=== PATIENT | female | born 1950 | race Caucasian/White ===

== ENCOUNTER 2017-05-14 16:57 | Observation (INO) | payer MEDICARE, MEDICAID ==
--- NOTE | 2017-05-14 17:00 | EDM.PDOC ---
ED HPI GENERAL MEDICAL PROBLEM - General Stated Complaint: SURGERY Time Seen by Provider: 05/14/17 17:00 Source of Information: Reports: Patient - History of Present Illness INITIAL COMMENTS - FREE TEXT/NARRATIVE: HISTORY AND PHYSICAL: History of present illness: []Patient presents by EMS from [facility] surgery after dental procedure She had dental procedure at 1300 today propofol for anesthesia, she is not recovering well from anesthesia she becomes hypoxic on room air, lungs were clear prior to procedure apparently she now has a slight crackle at the base on the left History of Alzheimer's dementia and does not follow instructions well No distress except is in mid 90s on 4 L currently with a Ventimask Patient does not provide review of systems DuoNeb was provided at [facility] surgery Review of systems: As per history of present illness and below otherwise all systems reviewed and negative. Past medical history: As per history of present illness and as reviewed below otherwise noncontributory. Surgical history: As per history of present illness and as reviewed below otherwise noncontributory. Social history: No reported history of drug or alcohol abuse. Family history: As per history of present illness and as reviewed below otherwise noncontributory. Physical exam: HEENT: Atraumatic, normocephalic, pupils reactive, negative for conjunctival pallor or scleral icterus, mucous membranes moist, throat clear, neck supple, nontender, trachea midline. Lungs: Clear to auscultation, breath sounds equal bilaterally, chest nontender. Heart: S1S2, regular, negative for clicks, rubs, or JVD. Abdomen: Soft, nondistended, nontender. Negative for masses or hepatosplenomegaly. Negative for costovertebral tenderness. Pelvis: Stable nontender. Genitourinary: Deferred. Rectal: Deferred. Extremities: Atraumatic, negative for cords or calf pain. Neurovascular unremarkable. Neuro: Awake, alert, oriented. Cranial nerves II through XII unremarkable. Cerebellum unremarkable. Motor and sensory unremarkable throughout. Exam nonfocal. Diagnostics: []CBC, CMP, UA, troponin EKG Chest 1 view Therapeutics: []O2 Ventimask Impression: []Hypoxia Postop dental procedure with anesthesia Chronic history of baseline Definitive disposition and diagnosis as appropriate pending reevaluation and review of above. 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: Musculoskeletal History: Reports: Other (See Below) Other Musculoskeletal History: hand and leg surgery Neurological History: Reports: Other (See Below) Other Neuro History: Dementia Psychiatric History: Reports: Dementia Dermatologic History: Reports: Cellulitis - Past Surgical History Musculoskeletal Surgical History: Reports: None Social & Family History - Tobacco Use Smoking Status *Q: Never Smoker Used Tobacco, but Quit: No Second Hand Smoke Exposure: No - Caffeine Use Caffeine Use: Reports: None - Recreational Drug Use Recreational Drug Use: No ED ROS GENERAL - Review of Systems Review Of Systems: ROS reveals no pertinent complaints other than HPI. ED EXAM, GENERAL - Physical Exam Exam: See Below Course - Vital Signs Last Recorded V/S: Last Vital Signs Temp 36.7 C 05/14/17 17:07 Pulse 94 05/14/17 17:07 Resp 20 05/14/17 17:07 BP 116/67 05/14/17 17:07 Pulse Ox 96 05/14/17 17:07 - Orders/Labs/Meds Orders: Active Orders 24 hr Category Date Time Status EKG Documentation Completion [RC] STAT Care 05/14/17 17:00 Active Chest 1V Frontal [CR] Stat Exams 05/14/17 17:00 Taken UA W/MICROSCOPIC [URIN] Stat Lab 05/14/17 16:59 Uncollected Labs: Laboratory Tests 05/14/17 05/14/17 05/14/17 Range/Units 17:18 17:35 17:35 WBC 12.66 H (4.0-11.0) K/uL RBC 4.05 L (4.30-5.90) M/uL Hgb 12.8 (12.0-16.0) g/dL Hct 39.8 (36.0-46.0) % MCV 98.3 H (80.0-98.0) fL MCH 31.6 (27.0-32.0) pg MCHC 32.2 (31.0-37.0) g/dL RDW Std Deviation 47.5 (28.0-62.0) fl RDW Coeff of Humera 13 (11.0-15.0) % Plt Count 279 (150-400) K/uL MPV 10.40 (7.40-12.00) fL Neut % (Auto) 89.3 H (48.0-80.0) % Lymph % (Auto) 9.2 L (16.0-40.0) % [place] % (Auto) 1.0 (0.0-15.0) % Eos % (Auto) 0.3 (0.0-7.0) % Baso % (Auto) 0.2 (0.0-1.5) % Neut # (Auto) 11.3 H (1.4-5.7) K/uL Lymph # (Auto) 1.2 (0.6-2.4) K/uL [place] # (Auto) 0.1 (0.0-0.8) K/uL Eos # (Auto) 0.0 (0.0-0.7) K/uL Baso # (Auto) 0.0 (0.0-0.1) K/uL Nucleated RBC % 0.0 /100WBC Nucleated RBCs # 0 K/uL Sodium 140 (136-146) mmol/L Potassium 4.4 (3.5-5.1) mmol/L Chloride 105 (98-110) mmol/L Carbon Dioxide 26 (21-31) mmol/L BUN 23 (6.0-23.0) mg/dL Creatinine 0.7 (0.6-1.5) mg/dL Est Cr Clr Drug Dosing 79.75 mL/min Estimated GFR (MDRD) > 60.0 ml/min Glucose 139 H (60-110) mg/dL Calcium 9.1 (8.8-10.8) mg/dL Total Bilirubin 0.3 (0.1-1.5) mg/dL AST 20 (5-40) IU/L ALT 19 (8-54) IU/L Alkaline Phosphatase 67 (40-150) Troponin I < 0.10 (0.0-0.29) NG/ML Total Protein 7.3 (6.0-8.0) g/dL Albumin 4.0 (3.4-4.8) g/dL Globulin 3.3 (2.0-3.5) g/dL Albumin/Globulin Ratio 1.2 L (1.3-2.8) Meds: Medications Discontinued Medications Generic Name Dose Route Start Last Admin Trade Name Freq PRN Reason Stop Dose Admin Methylprednisolone Sodium Succinate 125 mg 05/14/17 17:05 05/14/17 18:02 Solu-Medrol IVPUSH 05/14/17 17:06 125 mg ONETIME ONE Administration Departure - Departure Time of Disposition: 18:37 Disposition: Refer to Observation Condition: Fair Clinical Impression: Hypoxia - Discharge Information - My Orders Last 24 Hours: My Active Orders 05/14/17 16:59 UA W/MICROSCOPIC [URIN] Stat 05/14/17 17:00 EKG Documentation Completion [RC] STAT Chest 1V Frontal [CR] Stat - Assessment/Plan Last 24 Hours: My Active Orders 05/14/17 16:59 UA W/MICROSCOPIC [URIN] Stat 05/14/17 17:00 EKG Documentation Completion [RC] STAT Chest 1V Frontal [CR] Stat
[2017-05-14] MEDS ORDERED: methylPREDNISolone Sodium Succinate 125 MG/2 ML SDV IVPUSH ONE (17:05)
[2017-05-14 17:52] LABS: CHLORIDE,CL 105 mmol/L (98-110); SODIUM,NA 140 mmol/L (136-146)
--- NOTE | 2017-05-14 20:40 | PCM.HP ---
H&P History of Present Illness - General Admit Problem/Dx: Admission Diagnosis/Problem Admission Diagnosis/Problem Hypoxia - History of Present Illness Initial Comments - Free Text/Narative: 66 yo female with pmh of Alzheimer dementia who is a resident of [facility]. She had a [address] Alcantara today with the use of propofol. Following the procedure she had difficulty keep her O2 sats up. She was transferred to the ED. She is nonverbal but appears in no acute distress. She is satting 86-88% on room air. ED physician recommended observation overnight. 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: Musculoskeletal History: Reports: Other (See Below) Other Musculoskeletal History: hand and leg surgery Neurological History: Reports: Other (See Below) Other Neuro History: Dementia Psychiatric History: Reports: Dementia Dermatologic History: Reports: Cellulitis - Past Surgical History Musculoskeletal Surgical History: Reports: None Social & Family History - Family History Family Medical History: Noncontributory - Tobacco Use Smoking Status *Q: Never Smoker Used Tobacco, but Quit: No Second Hand Smoke Exposure: No - Caffeine Use Caffeine Use: Reports: None - Recreational Drug Use Recreational Drug Use: No H&P Review of Systems - Review of Systems: Review Of Systems: Unable To Obtain Exam - Exam Exam: See Below - Vital Signs Vital Signs: Last Vital Signs Temp 36.6 C 05/14/17 19:46 Pulse 101 H 05/14/17 19:46 Resp 14 05/14/17 19:46 BP 151/106 H 05/14/17 19:46 Pulse Ox 87 L 05/14/17 19:46 Weight: 87 kg - Exam General: No: Mild Distress Lungs: Clear to Auscultation, Normal Respiratory Effort Cardiovascular: Regular Rate, Regular Rhythm Extremities: Other (mild pedal edema) Skin: Warm, Dry, Intact - Patient Data Result Diagrams: 05/14/17 17:35 05/14/17 17:35 *Q Meaningful Use (ADM) - VTE *Q VTE Criteria *Q: - Stroke *Q Stroke Criteria *Q: - AMI *Q AMI Criteria *Q: Problem List Initiated/Reviewed/Updated: Yes Assessment/Plan Comment:: 66 yo female observed overnight due to slow to resolve hypoxia following anesthesea.
[2017-05-15 05:51] VITALS: BP 110/62
--- NOTE | 2017-05-15 09:35 | CR ---
EXAM DATE: 05/14/17 PATIENT'S AGE: 66 Patient: JOSE LUIS BANDA Facility: [place], [place] Site . Site : [id number] Study: XRay Chest [id number]/25/2017 5:59:08 PM Ordering Physician: Santiago Evangelista Final Report: INDICATION: Recent mouth surgery. Decreased oxygen saturations, lung crackles. Shortness of breath. TECHNIQUE: Chest radiograph 1 view COMPARISON: None FINDINGS: Lung volumes are diminished with linear atelectasis at the right lung base. The cardiac silhouette is mildly enlarged, likely accentuated due to portable AP technique and low lung volumes. No focal pneumonia. Proximal right humerus surgical hardware, partially visualized. Lateral 3rd right rib fracture deformity, age indeterminate. IMPRESSION: 1. Low lung volumes with cardiomegaly and right basilar atelectasis. No focal infiltrate. Dictated by Bonilla Adrian MD @ 05/14/2017 6:25:38 PM Dictated by: Bonilla Adrian MD @ 05/14/2017 18:25:44 (Electronic Signature) Report Signed by Proxy. [facility]
--- NOTE | 2017-05-15 11:31 | PCM.DCSUM1 ---
Discharge Summary - Hospital Course Brief History: 66 yo female with pmh of Alzheimer dementia who is a resident of [facility]. She had a [address] Alcantara today with the use of propofol. Following the procedure she had difficulty keep her O2 sats up. She was transferred to the ED. She is nonverbal but appears in no acute distress. She is satting 86-88% on room air. ED physician recommended observation overnight. - Discharge Data Discharge Date: 05/15/17 Discharge Disposition: DC/Tfer to SNF 03 Condition: Good - Discharge Diagnosis/Problem(s) (1) Hypoxia SNOMED Code(s): 571624616, 233629303 ICD Code: R09.02 - HYPOXEMIA Status: Resolved (2) Alzheimer's type dementia SNOMED Code(s): 09701823 ICD Code: G30.9 - ALZHEIMER'S DISEASE, UNSPECIFIED Status: Acute Qualifiers: Alzheimer's disease onset: unspecified onset Dementia behavioral disturbance: without behavioral disturbance Qualified Code(s): G30.9 - Alzheimer's disease, unspecified - Patient Instructions Diet: Usual Diet as Tolerated Activity: As Tolerated Notify Provider of: Fever, Increased Pain, Swelling and Redness, Drainage, Nausea and/or Vomiting - Discharge Plan Home Medications: Home Meds Acetaminophen [Tylenol Arthritis] 650 mg PO QID 05/14/17 [History] Acetaminophen [Tylenol Extra Strength] 500 mg PO Q4H PRN 05/15/17 [History] Citalopram Hydrobromide [Celexa] 40 mg PO DAILY 05/15/17 [History] Diazepam [Valium] 5 mg PO Q8H PRN 05/15/17 [History] Ibuprofen [Advil] 200 mg PO Q8H PRN 05/15/17 [History] Magnesium Hydroxide [Milk of Magnesia] 30 ml PO DAILY PRN 05/15/17 [History] Multivitamin [Multi-Vitamin Daily] 1 tab PO DAILY 05/15/17 [History] Nut.Sup,Spec.Frm,L-Fr,Iron/Fos [Twocal HN] 90 ml PO DAILY 05/15/17 [History] QUEtiapine Fumarate [Seroquel] 50 mg PO BID 05/15/17 [History] Patient Handouts: Hypoxemia Referrals: Ruperto Mart MD [Primary Care Provider] - 05/20/17 (On his next [place] rounds. ) - Discharge Summary/Plan Comment DC Time >30 min.: No Discharge Summary/Plan Comment: Discharge diagnoses Hypoxia post anesthesia Dementia Bambi was monitored overnight with supplemental oxygen as needed. This morning she is alert and in no acute distress. Oxygen saturations 93-94% on RA. We will discharge back to [place] this morning, with no changes to home medications. To follow up with Dr. Mart next week. - General Info Date of Service: 05/15/17 Admission Dx/Problem (Free Text: Admission Diagnosis/Problem Admission Diagnosis/Problem Hypoxia Subjective Update: Non-verbal, but alert. Does not appear in distress Functional Status: Reports: Pain Controlled, Tolerating Diet - Patient Data Vitals - Most Recent: Last Vital Signs Temp 97.7 F 05/15/17 04:00 Pulse 83 05/15/17 04:00 Resp 16 05/15/17 04:00 BP 110/62 05/15/17 04:00 Pulse Ox 91 L 05/15/17 04:00 Weight - Most Recent: 87 kg I&O - Last 24 hours: Intake & Output 05/14/17 05/15/17 05/15/17 22:59 06:59 14:59 Intake Total 50 150 Output Total 850 Balance 50 -700 Med Orders - Current: Current Medications Discontinued Medications Methylprednisolone Sodium Succinate (Solu-Medrol) 125 mg IVPUSH ONETIME ONE Stop: 05/14/17 17:06 Last Admin: 05/14/17 18:02 Dose: 125 mg - Exam General: Reports: Alert, Cooperative, No Acute Distress Lungs: Reports: Clear to Auscultation, Normal Respiratory Effort Cardiovascular: Reports: Regular Rate, Regular Rhythm Extremities: Normal Inspection, Normal Range of Motion, Non-Tender, No Pedal Edema, Normal Capillary Refill Skin: Reports: Warm, Dry Psy/Mental Status: Reports: Alert, Normal Affect, Normal Mood *Q Meaningful Use (DIS) - VTE *Q VTE Criteria *Q: - Stroke *Q Stroke Criteria *Q: - AMI *Q AMI Criteria *Q:
== END 2017-05-15 10:40 ==
LOC: MW.ED 16:57 → MW.MS 18:38
PROVIDERS: ADMIT Internal Medicine; ATTEND Internal Medicine
DX: R09.02 Hypoxemia (principal); M19.90 Unspecified osteoarthritis, unspecified site; F03.90 Unspecified dementia, unspecified severity, without behavioral disturbance, psychotic disturbance, mood disturbance, and anxiety; G30.9 Alzheimer's disease, unspecified; Z98.890 Other specified postprocedural states; Z79.891 Long term (current) use of opiate analgesic; Z79.899 Other long term (current) drug therapy; Z79.1 Long term (current) use of non-steroidal anti-inflammatories (NSAID)
CPT/HCPCS: 36415; 71010; 80053; 84484; 85025; 93005; 96374; 99285; G0378; J2930

== ENCOUNTER 2019-02-13 10:52 | Inpatient (IN) | payer MEDICARE, MEDICAID ==
--- NOTE | 2019-02-13 10:38 | EDM.PDOC ---
ED HPI GENERAL MEDICAL PROBLEM - General Stated Complaint: AMB Time Seen by Provider: 02/13/19 10:36 Source of Information: Reports: Patient, Family, Skilled Nursing Records, Old Records History Limitations: Reports: Altered Mental Status - History of Present Illness INITIAL COMMENTS - FREE TEXT/NARRATIVE: HISTORY AND PHYSICAL: History of present illness: Patient is a 68-year-old female who is brought to the emergency room by EMS with a stroke code being established prior to arrival due to vomiting and left- sided weakness and facial drooping. [facility] staff and family members state that she was last known well yesterday evening. This morning they had noted that she had vomiting, thought she had facial drooping affecting the lef and left sided weakness. Patient has a history of alzhiemers dementia. She is normally non-verbal and Review of systems: As per history of present illness and below otherwise all systems reviewed and negative. Past medical history: As per history of present illness and as reviewed below otherwise noncontributory. Surgical history: As per history of present illness and as reviewed below otherwise noncontributory. Social history: See social history for further information Family history: As per history of present illness and as reviewed below otherwise noncontributory. Physical exam: General: Well-developed and well-nourished 68-year-old female. Alert and oriented. Nontoxic appearing and in no acute distress. HEENT: Atraumatic, normocephalic, pupils equal and reactive bilaterally, negative for conjunctival pallor or scleral icterus, mucous membranes moist, TMs normal bilaterally, throat clear, neck supple, nontender, trachea midline. No drooling or trismus noted. No meningeal signs. No hot potato voice noted. Lungs: Clear to auscultation, breath sounds equal bilaterally, chest nontender. Heart: S1S2, regular rate and rhythm without overt murmur Abdomen: Soft, nondistended, nontender. Negative for masses or hepatosplenomegaly. Negative for costovertebral tenderness. Pelvis: Stable nontender. Genitourinary: Deferred. Rectal: Deferred. Skin: Intact, warm, dry. No lesions or rashes noted. Extremities: Atraumatic, moves all extremities per self without difficulty or deficits, negative for cords or calf pain. Neurovascular unremarkable. Neuro: Awake, alert, appropriate per self. Moves all extremties. Neuro appears baseline. Notes: Dr. Talley was directly involved in this case. Patient is a code level III. Patient's baseline is nonverbal and she does not follow commands. Difficult to assess and NIH scale. Patient moves all extremities and is able to grasp strong with hands bilaterally. She does not follow commands as far as assessing drift. No facial droop or drooling noted. Patient does wear protective boots bilaterally (prevent ulcers). Patient was log rolled, the back was assessed - mild erythema noted to the coccyx area but no skin break down noted. Patient was incontinent of urine. 1050: Dr Bradford, radiologist, called with head CT findings: No acute findings are noted at this time. Chest x-ray shows no acute findings. Troponin is 0.068. Patient is vitally stable. IV fluids are running. There is no acute findings on EKG. Patient's lactate and WBC are also elevated. Nursing staff did attempt to get a straight catheter urine, although she may have voided just prior to assess her brief was saturated with urine. Unable to get enough sample to send to lab. We will wait for urine collection, to assess if the sepsis is from UA. Reviewed with Dr Talley. IV antibiotics ordered. Dr. Rodriguez was consulted on this case. He is agreeable to admitting this patient for further evaluation and management. Family at the bedside is aware. We'll continue to monitor. Diagnostics: CBC, CMP, UA, Troponin, EKG, CXR, Head CT, INR/PTT, Machine Maintenance Therapeutics: IV fluids, Zofran, Rocephin, Levaquin, Zosyn Impression: Sepsis Plan: Inpatient ICU admission Definitive disposition and diagnosis as appropriate pending reevaluation and review of above. - Related Data Allergies Allergy/AdvReac Type Severity Reaction Status Date / Time No Known Allergies Allergy Verified 02/13/19 11:18 Home Meds: Home Meds Acetaminophen [Tylenol Arthritis] 650 mg PO QID 05/14/17 [History] Acetaminophen [Tylenol Extra Strength] 500 mg PO Q4H PRN 05/15/17 [History] Citalopram Hydrobromide [Celexa] 40 mg PO DAILY 05/15/17 [History] Diazepam [Valium] 5 mg PO Q8H PRN 05/15/17 [History] Ibuprofen [Advil] 200 mg PO Q8H PRN 05/15/17 [History] Magnesium Hydroxide [Milk of Magnesia] 30 ml PO DAILY PRN 05/15/17 [History] Multivitamin [Multi-Vitamin Daily] 1 tab PO DAILY 05/15/17 [History] Nut.Sup,Spec.Frm,L-Fr,Iron/Fos [Twocal HN] 90 ml PO DAILY 05/15/17 [History] QUEtiapine Fumarate [Seroquel] 50 mg PO BID 05/15/17 [History] Past Medical History HEENT History: Reports: Impaired 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 ED EXAM, NEURO - Physical Exam Exam: See Below (See dictation) Course - Vital Signs Last Recorded V/S: Last Vital Signs Temp 98.6 F 02/13/19 10:30 Pulse 94 02/13/19 10:30 Resp 18 02/13/19 10:30 BP 95/56 L 02/13/19 10:30 Pulse Ox 93 L 02/13/19 10:30 - Orders/Labs/Meds Orders: Active Orders 24 hr Category Date Time Status Patient Status [ADT] Stat ADT 02/13/19 12:20 Active Assess Neurological Status [RC] ASDIRECTED Care 02/13/19 10:32 Active Cardiac Monitoring [RC] . DIRECTED Care 02/13/19 10:32 Active EKG Documentation Completion [RC] STAT Care 02/13/19 10:31 Active Initiate Acute Stroke Protocol [RC] STAT Care 02/13/19 10:32 Active NIH Stroke Scale [RC] ASDIRECTED Care 02/13/19 10:32 Active Oxygen Therapy [RC] ASDIRECTED Care 02/13/19 10:32 Active CULTURE BLOOD [BC] Stat Lab 02/13/19 11:25 Received CULTURE BLOOD [BC] Stat Lab 02/13/19 11:40 Received UA RFX GATITO AND CULT IF INDIC [URIN] Stat Lab 02/13/19 Ordered Levofloxacin/Dextrose 5%-Water [Levaquin in D5W 750 MG/ Med 02/13/19 12:20 Active 150 ML] 750 mg Premix Bag 1 bag IV ONETIME Sodium Chloride 0.9% [Normal Saline] 1,000 ml Med 02/13/19 11:41 Active IV STAT Sodium Chloride 0.9% [Normal Saline] 1,000 ml Med 02/13/19 12:35 Active IV STAT Sodium Chloride 0.9% [Saline Flush] Med 02/13/19 10:31 Active 10 ml FLUSH ASDIRECTED PRN Sodium Chloride 0.9% [Saline Flush] Med 02/13/19 10:31 Active 2.5 ml FLUSH ASDIRECTED PRN Blood Culture x2 Reflex Set [OM.PC] Stat Oth 02/13/19 11:12 Ordered Saline Lock Insert [OM.PC] Stat Oth 02/13/19 10:31 Ordered Medication Orders Sodium Chloride (Normal Saline) 1,000 mls @ 500 mls/hr IV STAT ONE Stop: 02/13/19 13:40 Last Admin: 02/13/19 12:25 Dose: 500 mls/hr Levofloxacin/Dextrose 750 mg/ (Premix) 150 mls @ 100 mls/hr IV ONETIME ONE Stop: 02/13/19 13:49 Sodium Chloride (Normal Saline) 1,000 mls @ 999 mls/hr IV STAT ONE Stop: 02/13/19 13:35 Sodium Chloride (Saline Flush) 10 ml FLUSH ASDIRECTED PRN PRN Reason: Keep Vein Open Last Admin: 02/13/19 11:06 Dose: 10 ml Sodium Chloride (Saline Flush) 2.5 ml FLUSH ASDIRECTED PRN PRN Reason: Keep Vein Open Last Admin: 02/13/19 11:06 Dose: 2.5 ml Labs: Laboratory Tests 02/13/19 02/13/19 02/13/19 Range/Units 10:59 10:59 10:59 WBC 28.46 H (4.0-11.0) K/uL RBC 4.69 (4.30-5.90) M/uL Hgb 14.8 (12.0-16.0) g/dL Hct 46.5 H (36.0-46.0) % MCV 99.1 H (80.0-98.0) fL MCH 31.6 (27.0-32.0) pg MCHC 31.8 (31.0-37.0) g/dL RDW Std Deviation 51.1 (28.0-62.0) fl RDW Coeff of Humera 14 (11.0-15.0) % Plt Count 220 (150-400) K/uL MPV 13.40 H (7.40-12.00) fL Add Manual Diff YES Neutrophils % (Manual) 78 (48.0-80.0) % Band Neutrophils % 9 % Lymphocytes % (Manual) 6 L (16.0-40.0) % Monocytes % (Manual) 6 (0.0-15.0) % Metamyelocytes % 1 % Nucleated RBC % 0.0 /100WBC Absolute Seg Neuts 22.2 H (1.4-5.7) Band Neutrophils # 2.6 Lymphocytes # (Manual) 1.7 (0.6-2.4) Monocytes # (Manual) 1.7 H (0.0-0.8) Absolute Metamyelocyte 0.3 Nucleated RBCs # 0 K/uL Vacuolated Monocytes FEW INR 2.63 Lactate (0.20-2.00) mmol/L Sodium 152 H (136-145) mmol/L Potassium 3.5 (3.5-5.1) mmol/L Chloride 114 H (98-107) mmol/L Carbon Dioxide 26.5 (21.0-32.0) mmol/L BUN 29 H (7.0-18.0) mg/dL Creatinine 1.2 H (0.6-1.0) mg/dL Est Cr Clr Drug Dosing 42.00 mL/min Estimated GFR (MDRD) 44.7 ml/min Glucose 258 H (74-106) mg/dL Calcium 9.0 (8.5-10.1) mg/dL Total Bilirubin 0.7 (0.2-1.0) mg/dL AST 28 (15-37) IU/L ALT 41 (14-63) IU/L Alkaline Phosphatase 96 (46-116) U/L Troponin I 0.068 H* (0.000-0.056) ng/mL Total Protein 6.7 (6.4-8.2) g/dL Albumin 2.4 L (3.4-5.0) g/dL Globulin 4.3 H (2.6-4.0) g/dL Albumin/Globulin Ratio 0.6 L (0.9-1.6) 02/13/19 Range/Units 11:25 WBC (4.0-11.0) K/uL RBC (4.30-5.90) M/uL Hgb (12.0-16.0) g/dL Hct (36.0-46.0) % MCV (80.0-98.0) fL MCH (27.0-32.0) pg MCHC (31.0-37.0) g/dL RDW Std Deviation (28.0-62.0) fl RDW Coeff of Humera (11.0-15.0) % Plt Count (150-400) K/uL MPV (7.40-12.00) fL Add Manual Diff Neutrophils % (Manual) (48.0-80.0) % Band Neutrophils % % Lymphocytes % (Manual) (16.0-40.0) % Monocytes % (Manual) (0.0-15.0) % Metamyelocytes % % Nucleated RBC % /100WBC Absolute Seg Neuts (1.4-5.7) Band Neutrophils # Lymphocytes # (Manual) (0.6-2.4) Monocytes # (Manual) (0.0-0.8) Absolute Metamyelocyte Nucleated RBCs # K/uL Vacuolated Monocytes INR Lactate 2.5 H (0.20-2.00) mmol/L Sodium (136-145) mmol/L Potassium (3.5-5.1) mmol/L Chloride (98-107) mmol/L Carbon Dioxide (21.0-32.0) mmol/L BUN (7.0-18.0) mg/dL Creatinine (0.6-1.0) mg/dL Est Cr Clr Drug Dosing mL/min Estimated GFR (MDRD) ml/min Glucose (74-106) mg/dL Calcium (8.5-10.1) mg/dL Total Bilirubin (0.2-1.0) mg/dL AST (15-37) IU/L ALT (14-63) IU/L Alkaline Phosphatase (46-116) U/L Troponin I (0.000-0.056) ng/mL Total Protein (6.4-8.2) g/dL Albumin (3.4-5.0) g/dL Globulin (2.6-4.0) g/dL Albumin/Globulin Ratio (0.9-1.6) Meds: Medications Generic Name Dose Route Start Last Admin Trade Name Ubaldoq PRN Reason Stop Dose Admin Sodium Chloride 1,000 mls @ 500 mls/hr 02/13/19 11:41 02/13/19 12:25 Normal Saline IV 02/13/19 13:40 500 mls/hr STAT ONE Administration Levofloxacin/Dextrose 750 mg/ 150 mls @ 100 mls/hr 02/13/19 12:20 Premix IV 02/13/19 13:49 ONETIME ONE Sodium Chloride 1,000 mls @ 999 mls/hr 02/13/19 12:35 Normal Saline IV 02/13/19 13:35 STAT ONE Sodium Chloride 10 ml 02/13/19 10:31 02/13/19 11:06 Saline Flush FLUSH 10 ml ASDIRECTED PRN Administration Keep Vein Open Sodium Chloride 2.5 ml 02/13/19 10:31 02/13/19 11:06 Saline Flush FLUSH 2.5 ml ASDIRECTED PRN Administration Keep Vein Open Discontinued Medications Generic Name Dose Route Start Last Admin Trade Name Brigette PRN Reason Stop Dose Admin Ceftriaxone Sodium/Dextrose 1 50 mls @ 100 mls/hr 02/13/19 11:41 02/13/19 12: 25 gm/ Premix IV 02/13/19 12:10 100 mls/hr ONETIME ONE Administration Piperacillin Sod/Tazobactam 50 mls @ 100 mls/hr 02/13/19 12:23 Sod 3.375 gm/ Sodium Chloride IV 02/13/19 12:52 ONETIME ONE Ondansetron HCl 4 mg 02/13/19 10:32 02/13/19 11:06 Zofran IVPUSH 02/13/19 10:33 4 mg ONETIME ONE Administration Departure - Departure Time of Disposition: 12:56 Disposition: Admitted As Inpatient 66 Clinical Impression: Sepsis Qualifiers: Sepsis type: sepsis due to unspecified organism Qualified Code(s): A41.9 - Sepsis, unspecified organism - Discharge Information - My Orders Last 24 Hours: My Active Orders 02/13/19 UA RFX GATITO AND CULT IF INDIC [URIN] Stat 02/13/19 10:31 EKG Documentation Completion [RC] STAT Sodium Chloride 0.9% [Saline Flush] 10 ml FLUSH ASDIRECTED PRN Sodium Chloride 0.9% [Saline Flush] 2.5 ml FLUSH ASDIRECTED PRN Saline Lock Insert [OM.PC] Stat 02/13/19 10:32 Assess Neurological Status [RC] ASDIRECTED Cardiac Monitoring [RC] . DIRECTED Initiate Acute Stroke Protocol [RC] STAT NIH Stroke Scale [RC] ASDIRECTED Oxygen Therapy [RC] ASDIRECTED 02/13/19 11:12 Blood Culture x2 Reflex Set [OM.PC] Stat 02/13/19 11:25 CULTURE BLOOD [BC] Stat 02/13/19 11:40 CULTURE BLOOD [BC] Stat 02/13/19 11:41 Sodium Chloride 0.9% [Normal Saline] 1,000 ml IV STAT 02/13/19 12:20 Patient Status [ADT] Stat Levofloxacin/Dextrose 5%-Water [Levaquin in D5W 750 MG/150 ML] 750 mg Premix Bag 1 bag IV ONETIME 02/13/19 12:35 Sodium Chloride 0.9% [Normal Saline] 1,000 ml IV STAT - Assessment/Plan Last 24 Hours: My Active Orders 02/13/19 UA RFX GATITO AND CULT IF INDIC [URIN] Stat 02/13/19 10:31 EKG Documentation Completion [RC] STAT Sodium Chloride 0.9% [Saline Flush] 10 ml FLUSH ASDIRECTED PRN Sodium Chloride 0.9% [Saline Flush] 2.5 ml FLUSH ASDIRECTED PRN Saline Lock Insert [OM.PC] Stat 02/13/19 10:32 Assess Neurological Status [RC] ASDIRECTED Cardiac Monitoring [RC] . DIRECTED Initiate Acute Stroke Protocol [RC] STAT NIH Stroke Scale [RC] ASDIRECTED Oxygen Therapy [RC] ASDIRECTED 02/13/19 11:12 Blood Culture x2 Reflex Set [OM.PC] Stat 02/13/19 11:25 CULTURE BLOOD [BC] Stat 02/13/19 11:40 CULTURE BLOOD [BC] Stat 02/13/19 11:41 Sodium Chloride 0.9% [Normal Saline] 1,000 ml IV STAT 02/13/19 12:20 Patient Status [ADT] Stat Levofloxacin/Dextrose 5%-Water [Levaquin in D5W 750 MG/150 ML] 750 mg Premix Bag 1 bag IV ONETIME 02/13/19 12:35 Sodium Chloride 0.9% [Normal Saline] 1,000 ml IV STAT
[~2019-02-13 10:52] MED LIST: Ondansetron 4 MG/2 ML SDV IVPUSH ONE; Sodium Chloride 0.9% 10 ML Syringe FLUSH PRN; Sodium Chloride 0.9% 2.5 ML Syringe FLUSH PRN
--- NOTE | 2019-02-13 10:52 | CT ---
EXAMINATION: Non contrast CT head. Coronal and sagittal reformats. HISTORY: Strokelike symptoms FINDINGS: No evidence of intra or extra axial hemorrhage, mass, midline shift, hydrocephalus or edema. Moderate generalized atrophy with periventricular and subcortical white matter hypodensities. No hypoattenuation changes in the major vascular territories to suggest acute infarct. No abnormal intracranial calcifications are detected. No evidence of substantial vascular calcifications. Mild mucosal thickening within the maxillary sinuses. Mastoid air cells and middle ears are clear. Pituitary fossa appears unremarkable. Orbits and globes are symmetric. Calvarium is intact. No evidence of skull fracture. IMPRESSION: 1. No acute intracranial findings. 2. Moderate generalized atrophy and mild small vessel ischemic changes.
[2019-02-13] MEDS ORDERED: cefTRIAXone 1 GM in Premix Bag 1 BAG IV ONE (11:41)
[2019-02-13] MEDS ORDERED: Sodium Chloride 0.9% 1,000 ML IV ONE ×2 (11:41→12:35)
--- NOTE | 2019-02-13 11:41 | CR ---
EXAMINATION: Portable chest radiograph. HISTORY: Stroke like symptoms. FINDINGS: The trachea is midline. Low lung volumes. The cardiomediastinal silhouette is within normal limits. No pulmonary infiltrates, effusions or pneumothorax. Osseous structures appear osteopenic. Gaseous distended loops of large and small bowel are noted. IMPRESSION: No acute cardiopulmonary process.
[2019-02-13] MEDS ORDERED: Levofloxacin/Dextrose 5%-Water 750 MG in Premix Bag 1 BAG IV ONE (12:20)
[2019-02-13] MEDS ORDERED: Piperacillin/Tazobactam 3.375 GM in Sodium Chloride 0.9% 50 ML IV ONE (12:23)
[2019-02-13] MEDS ORDERED: Ondansetron 4 MG/2 ML SDV IVPUSH PRN (13:44)
[2019-02-13] MEDS ORDERED: Pantoprazole 40 MG Vial IV SCH (13:45)
[2019-02-13] MEDS ORDERED: Heparin Sodium 5,000 Units/ML Vial SUBCUT SCH (13:45)
[2019-02-13] MEDS ORDERED: Diazepam 5 MG Tab PO PRN (13:52)
--- NOTE | 2019-02-13 13:52 | PCM.HP ---
H&P History of Present Illness - General Date of Service: 02/13/19 Admit Problem/Dx: Admission Diagnosis/Problem Admission Diagnosis/Problem Sepsis - History of Present Illness Initial Comments - Free Text/Narative: 68 yo female with pmh of dementia who presents from [facility] with increasing lethargy, hypoxia and facial droop. IN the ED she was noted to have a WBC of 28 ,460. UA was nitrate positive. CT head was negative for acute pathology. - Related Data Allergies/Adverse Reactions: Allergies Allergy/AdvReac Type Severity Reaction Status Date / Time No Known Allergies Allergy Verified 02/13/19 11:18 Home Medications: Home Meds Citalopram Hydrobromide [Celexa] 40 mg PO DAILY 05/15/17 [History] Ibuprofen [Advil] 200 mg PO Q8H PRN 05/15/17 [History] Magnesium Hydroxide [Milk of Magnesia] 30 ml PO DAILY PRN 05/15/17 [History] Nut.Sup,Spec.Frm,L-Fr,Iron/Fos [Twocal HN] 3 oz PO QID 05/15/17 [History] QUEtiapine Fumarate [Seroquel] 25 mg PO BEDTIME 05/15/17 [History] Acetaminophen 500 mg PO Q4H PRN 02/15/19 [History] Acetaminophen [Tylenol Arthritis Pain] 650 mg PO QID 02/15/19 [History] Acetaminophen with Codeine [Acetaminop-Codeine 120-12 mg/5] 12.5 - 25 ml PO Q6H PRN 02/15/19 [History] Benzocaine [Orajel] 1 applic MUCMEM QID PRN 02/15/19 [History] Bisacodyl [Dulcolax] 10 mg RECTAL DAILY PRN 02/15/19 [History] Polyethylene Glycol 3350 [MiraLAX] 17 gm PO DAILY PRN 02/15/19 [History] guaiFENesin [Tussin] 10 ml PO Q4H PRN 02/15/19 [History] hydrOXYzine HCl [Atarax] 25 mg PO TID 02/15/19 [History] Menthol/Zinc Oxide [Gold Herbert Medicated Body Powdr] 1 applic TOP . 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: Musculoskeletal History: Reports: Other (See Below) Other Musculoskeletal History: hand and leg surgery Neurological History: Reports: Other (See Below) Other Neuro History: Dementia Psychiatric History: Reports: Dementia Endocrine/Metabolic History: Reports: None Hematologic History: Reports: None Immunologic History: Reports: None Oncologic (Cancer) History: Reports: None Dermatologic History: Reports: Cellulitis - Infectious Disease History Infectious Disease History: Reports: None - Past Surgical History Musculoskeletal Surgical History: Reports: None Social & Family History - Family History Family Medical History: Noncontributory - Tobacco Use Smoking Status *Q: Former Smoker Used Tobacco, but Quit: Yes Month/Year Tobacco Last Used: 4 years - Caffeine Use Caffeine Use: Reports: None - Recreational Drug Use Recreational Drug Use: No H&P Review of Systems - Review of Systems: Review Of Systems: Unable To Obtain Exam - Exam Exam: See Below - Vital Signs Vital Signs: Last Vital Signs Temp 37.0 C 02/13/19 10:30 Pulse 112 H 02/13/19 12:33 Resp 18 02/13/19 12:33 BP 95/67 02/13/19 12:33 Pulse Ox 93 L 02/13/19 12:33 Weight: 62.505 kg - Exam General: No: Mild Distress HEENT: Posterior Pharynx Clear Neck: Supple Lungs: Clear to Auscultation, Normal Respiratory Effort Cardiovascular: Regular Rate, Regular Rhythm GI/Abdominal Exam: Normal Bowel Sounds, Soft, Non-Tender Extremities: Non-Tender, No Pedal Edema Skin: Warm, Dry, Intact - Patient Data Lab Results Last 24 hrs: Laboratory Results - last 24 hr 02/13/19 02/13/19 02/13/19 Range/Units 10:59 10:59 10:59 WBC 28.46 H (4.0-11.0) K/uL RBC 4.69 (4.30-5.90) M/uL Hgb 14.8 (12.0-16.0) g/dL Hct 46.5 H (36.0-46.0) % MCV 99.1 H (80.0-98.0) fL MCH 31.6 (27.0-32.0) pg MCHC 31.8 (31.0-37.0) g/dL RDW Std Deviation 51.1 (28.0-62.0) fl RDW Coeff of Humera 14 (11.0-15.0) % Plt Count 220 (150-400) K/uL MPV 13.40 H (7.40-12.00) fL Add Manual Diff YES Neutrophils % (Manual) 78 (48.0-80.0) % Band Neutrophils % 9 % Lymphocytes % (Manual) 6 L (16.0-40.0) % Monocytes % (Manual) 6 (0.0-15.0) % Metamyelocytes % 1 % Nucleated RBC % 0.0 /100WBC Absolute Seg Neuts 22.2 H (1.4-5.7) Band Neutrophils # 2.6 Lymphocytes # (Manual) 1.7 (0.6-2.4) Monocytes # (Manual) 1.7 H (0.0-0.8) Absolute Metamyelocyte 0.3 Nucleated RBCs # 0 K/uL Vacuolated Monocytes FEW INR 2.63 Lactate (0.20-2.00) mmol/L Sodium 152 H (136-145) mmol/L Potassium 3.5 (3.5-5.1) mmol/L Chloride 114 H (98-107) mmol/L Carbon Dioxide 26.5 (21.0-32.0) mmol/L BUN 29 H (7.0-18.0) mg/dL Creatinine 1.2 H (0.6-1.0) mg/dL Est Cr Clr Drug Dosing 42.00 mL/min Estimated GFR (MDRD) 44.7 ml/min Glucose 258 H (74-106) mg/dL Calcium 9.0 (8.5-10.1) mg/dL Total Bilirubin 0.7 (0.2-1.0) mg/dL AST 28 (15-37) IU/L ALT 41 (14-63) IU/L Alkaline Phosphatase 96 (46-116) U/L Troponin I 0.068 H* (0.000-0.056) ng/mL Total Protein 6.7 (6.4-8.2) g/dL Albumin 2.4 L (3.4-5.0) g/dL Globulin 4.3 H (2.6-4.0) g/dL Albumin/Globulin Ratio 0.6 L (0.9-1.6) Urine Color Urine Appearance Urine pH (5.0-8.0) Ur Specific [place] (1.001-1.035) Urine Protein (NEGATIVE) mg/dL Urine Glucose (UA) (NEGATIVE) mg/dL Urine Ketones (NEGATIVE) mg/dL Urine Occult Blood (NEGATIVE) Urine Nitrite (NEGATIVE) Urine Bilirubin (NEGATIVE) Urine Ictotest Urine Urobilinogen (<2.0) EU/dL Ur Leukocyte Esterase (NEGATIVE) Urine RBC (0-2/HPF) Urine WBC (0-5/HPF) Ur Epithelial Cells (NONE-FEW) Urine Bacteria (NEGATIVE) Hyaline Casts (0-2/LPF) Urine Mucus (NONE-MOD) Urinalysis Comment 02/13/19 02/13/19 Range/Units 11:25 12:53 WBC (4.0-11.0) K/uL RBC (4.30-5.90) M/uL Hgb (12.0-16.0) g/dL Hct (36.0-46.0) % MCV (80.0-98.0) fL MCH (27.0-32.0) pg MCHC (31.0-37.0) g/dL RDW Std Deviation (28.0-62.0) fl RDW Coeff of Humera (11.0-15.0) % Plt Count (150-400) K/uL MPV (7.40-12.00) fL Add Manual Diff Neutrophils % (Manual) (48.0-80.0) % Band Neutrophils % % Lymphocytes % (Manual) (16.0-40.0) % Monocytes % (Manual) (0.0-15.0) % Metamyelocytes % % Nucleated RBC % /100WBC Absolute Seg Neuts (1.4-5.7) Band Neutrophils # Lymphocytes # (Manual) (0.6-2.4) Monocytes # (Manual) (0.0-0.8) Absolute Metamyelocyte Nucleated RBCs # K/uL Vacuolated Monocytes INR Lactate 2.5 H (0.20-2.00) mmol/L Sodium (136-145) mmol/L Potassium (3.5-5.1) mmol/L Chloride (98-107) mmol/L Carbon Dioxide (21.0-32.0) mmol/L BUN (7.0-18.0) mg/dL Creatinine (0.6-1.0) mg/dL Est Cr Clr Drug Dosing mL/min Estimated GFR (MDRD) ml/min Glucose (74-106) mg/dL Calcium (8.5-10.1) mg/dL Total Bilirubin (0.2-1.0) mg/dL AST (15-37) IU/L ALT (14-63) IU/L Alkaline Phosphatase (46-116) U/L Troponin I (0.000-0.056) ng/mL Total Protein (6.4-8.2) g/dL Albumin (3.4-5.0) g/dL Globulin (2.6-4.0) g/dL Albumin/Globulin Ratio (0.9-1.6) Urine Color YELLOW Urine Appearance CLOUDY Urine pH 5.0 (5.0-8.0) Ur Specific [place] >= 1.030 (1.001-1.035) Urine Protein 30 H (NEGATIVE) mg/dL Urine Glucose (UA) NEGATIVE (NEGATIVE) mg/dL Urine Ketones TRACE H (NEGATIVE) mg/dL Urine Occult Blood SMALL H (NEGATIVE) Urine Nitrite POSITIVE H (NEGATIVE) Urine Bilirubin SMALL H (NEGATIVE) Urine Ictotest POSITIVE Urine Urobilinogen 1.0 (<2.0) EU/dL Ur Leukocyte Esterase TRACE H (NEGATIVE) Urine RBC 2-5 (0-2/HPF) Urine WBC 10-15 (0-5/HPF) Ur Epithelial Cells MODERATE (NONE-FEW) Urine Bacteria 4+ H (NEGATIVE) Hyaline Casts 2-4 (0-2/LPF) Urine Mucus MODERATE (NONE-MOD) Urinalysis Comment Result Diagrams: 02/16/19 06:04 02/16/19 12:55 Problem List Initiated/Reviewed/Updated: Yes Orders Last 24hrs: Active Orders 24 hr Category Date Time Status Patient Status [ADT] Stat ADT 02/13/19 12:20 Active Antiembolic Devices [RC] PER UNIT ROUTINE Care 02/13/19 13:45 Ordered Assess Neurological Status [RC] ASDIRECTED Care 02/13/19 10:32 Active Cardiac Monitoring [RC] . DIRECTED Care 02/13/19 10:32 Active EKG Documentation Completion [RC] STAT Care 02/13/19 10:31 Active Initiate Acute Stroke Protocol [RC] STAT Care 02/13/19 10:32 Active NIH Stroke Scale [RC] ASDIRECTED Care 02/13/19 10:32 Active Oxygen Therapy [RC] ASDIRECTED Care 02/13/19 10:32 Active Oxygen Therapy [RC] PRN Care 02/13/19 13:44 Ordered Up ad Rina [RC] ASDIRECTED Care 02/13/19 13:44 Ordered VTE/DVT Education [RC] PER UNIT ROUTINE Care 02/13/19 13:44 Ordered Vital Signs [RC] Q4H Care 02/13/19 13:44 Ordered Regular Diet [DIET] Diet 02/13/19 Breakfast Ordered Abdomen Pelvis wo Cont [CT] Routine Exams 02/13/19 13:46 Ordered BASIC METABOLIC PANEL,BMP [CHEM] AM Lab 02/14/19 05:11 Ordered CBC WITH AUTO DIFF [HEME] AM Lab 02/14/19 05:11 Ordered CULTURE BLOOD [BC] Stat Lab 02/13/19 11:25 Received CULTURE BLOOD [BC] Stat Lab 02/13/19 11:40 Received CULTURE URINE [RM] Stat Lab 02/13/19 12:53 Received Heparin Sodium Med 02/13/19 13:45 Ordered 5,000 units SUBCUT Q8H Levofloxacin/Dextrose 5%-Water [Levaquin in D5W 750 MG/ Med 02/13/19 12:20 Active 150 ML] 750 mg Premix Bag 1 bag IV ONETIME Ondansetron [Zofran] Med 02/13/19 13:44 Ordered 4 mg IVPUSH Q4H PRN Pantoprazole [ProTONIX IV] Med 02/13/19 13:45 Ordered 40 mg IV Q24H Piperacillin/Tazobactam [Piperacil-Tazobact] 3.375 gm Med 02/13/19 18:30 Ordered Sodium Chloride 0.9% [Normal Saline] 50 ml IV Q6H Sodium Chloride 0.9% [Saline Flush] Med 02/13/19 10:31 Active 10 ml FLUSH ASDIRECTED PRN Sodium Chloride 0.9% [Saline Flush] Med 02/13/19 10:31 Active 2.5 ml FLUSH ASDIRECTED PRN Blood Culture x2 Reflex Set [OM.PC] Stat Oth 02/13/19 11:12 Ordered Saline Lock Insert [OM.PC] Stat Oth 02/13/19 10:31 Ordered Sequential Compression Device [OM.PC] Per Unit Routine Oth 02/13/19 13:44 Ordered Resuscitation Status Routine Resus Stat 02/13/19 13:44 Ordered Medication Orders Heparin Sodium (Porcine) (Heparin Sodium) 5,000 units SUBCUT Q8H VERONICA Levofloxacin/Dextrose 750 mg/ (Premix) 150 mls @ 100 mls/hr IV ONETIME ONE Stop: 02/13/19 13:49 Last Admin: 02/13/19 13:14 Dose: 100 mls/hr Piperacillin Sod/Tazobactam (Sod 3.375 gm/ Sodium Chloride) 50 mls @ 100 mls/ hr IV Q6H VERONICA Ondansetron HCl (Zofran) 4 mg IVPUSH Q4H PRN PRN Reason: Nausea Pantoprazole Sodium (Protonix Iv) 40 mg IV Q24H VERONICA Sodium Chloride (Saline Flush) 10 ml FLUSH ASDIRECTED PRN PRN Reason: Keep Vein Open Last Admin: 02/13/19 11:06 Dose: 10 ml Sodium Chloride (Saline Flush) 2.5 ml FLUSH ASDIRECTED PRN PRN Reason: Keep Vein Open Last Admin: 02/13/19 11:06 Dose: 2.5 ml Assessment/Plan Comment:: 68 yo female admitted for UTI with sepsis. Will evaluate with CT abdomen and pelvis. Treating with Zosyn. Cultures have been ordered. We will trend lactic acid. Troponin mildly elevated so will trend.
[2019-02-13] MEDS: Sodium Chloride 0.9% 1,000 ML IV SCH ×2 (14:52→23:51)
[2019-02-13] MEDS: Heparin Sodium 5,000 Units/ML Vial SUBCUT SCH ×2 (15:35→23:30)
[2019-02-13] MEDS: Pantoprazole 40 MG in Sodium Chloride 0.9% 10 ML IV SCH (15:40)
--- NOTE | 2019-02-13 15:41 | CT ---
CT of the abdomen and pelvis without contrast. HISTORY: Pyelonephritis TECHNIQUE: Axial CT images were obtained of the abdomen and pelvis without contrast. Coronal and sagittal reconstructions obtained. There is scatter artifacts secondary to the patient's arms. FINDINGS: Trace right pleural effusion. The liver, spleen, adrenal glands, and pancreas appear unremarkable for noncontrast examination. The gallbladder is distended with thickened olguin and pericholecystic fluid and stranding. There is no bulky retroperitoneal lymphadenopathy. No abdominal ascites. Tiny nonobstructing left left nephrolithiasis. No significant perinephric stranding. There are a few focally dilated loops of small bowel within the pelvis. The appendix is normal. There is a twisted appearance with focal narrowing of the sigmoid colon best noted on image 89. There is no bulky pelvic lymphadenopathy. No free fluid. No free air. Cooper catheter within the urinary bladder. Degenerative changes noted within the right hip. IMPRESSION: 1. Distended gallbladder with pericholecystic stranding, fluid, and gallbladder wall thickening consistent with cholecystitis. 2. Punctate nonobstructing left nephrolithiasis. 3. Several dilated loops of small bowel, possibly representing an ileus or partial bowel obstruction. There is a possibly transition point within the mid sigmoid colon.
[2019-02-13] MEDS: Piperacillin/Tazobactam 3.375 GM in Sodium Chloride 0.9% 50 ML IV SCH ×2 (16:47→21:02)
[2019-02-13 18:04] LABS: CHLORIDE,CL 116 mmol/L (98-107); SODIUM,NA 154 mmol/L (136-145)
[2019-02-13] MEDS ORDERED: Piperacillin/Tazobactam 3.375 GM in Sodium Chloride 0.9% 50 ML IV SCH (18:30)
[2019-02-13] MEDS ORDERED: Sodium Chloride 0.9% 500 ML IV ONE (18:39)
--- NOTE | 2019-02-13 18:54 | PCM.SN ---
- Free Text/Narrative Note: Spoke with family regarding CT scan results. They requested I speak with surgery. I spoke with Dr. Combs regarding the cholecystitis and possible partial bowel obstruction and he recommended transfer if the family want to persue surgery or perc drainage of gallbladder. Family at this time does not want transfer. Will continue fluid resuscitation. Lactic acid is 3.0 will bolus fluids.
[2019-02-14] MEDS ORDERED: Lactated Ringers 500 ML IV ONE (01:08)
[2019-02-14] MEDS ORDERED: Lactated Ringers 500 ML IV SCH (01:15)
[2019-02-14] MEDS: Piperacillin/Tazobactam 3.375 GM in Sodium Chloride 0.9% 50 ML IV SCH ×4 (03:01→20:47)
[2019-02-14 05:36] LABS: CHLORIDE,CL 119 mmol/L (98-107); SODIUM,NA 153 mmol/L (136-145)
[2019-02-14] MEDS: Heparin Sodium 5,000 Units/ML Vial SUBCUT SCH ×3 (06:41→22:33)
[2019-02-14] MEDS ORDERED: Potassium Chloride Riders 20 MEQ in Premix Bag 1 BAG IV ONE (06:56)
[2019-02-14] MEDS: Sodium Chloride 0.9% 1,000 ML IV SCH ×2 (08:05→15:55)
[2019-02-14] MEDS: Citalopram 20 MG Tab PO SCH (08:59)
[2019-02-14] MEDS ORDERED: NIFEdipine 30 MG Tab.ER PO ONE (09:15)
[2019-02-14] MEDS ORDERED: Sodium Chloride 0.9% 1,000 ML IV ONE (10:21)
--- NOTE | 2019-02-14 14:09 | PCM.PN ---
- General Info Date of Service: 02/14/19 - Review of Systems Systems Review Comment:: nonverbal - Patient Data Vitals - Most Recent: Last Vital Signs Temp 36.6 C 02/14/19 12:00 Pulse 112 H 02/13/19 12:33 Resp 20 02/14/19 13:00 BP 106/64 02/14/19 13:00 Pulse Ox 94 L 02/14/19 13:00 Weight - Most Recent: 60.509 kg I&O - Last 24 Hours: Intake & Output 02/13/19 02/14/19 02/14/19 22:59 06:59 14:59 Intake Total 625 2071 1050 Output Total 120 108 Balance 505 1963 1050 Lab Results Last 24 Hours: Laboratory Results - last 24 hr 02/13/19 02/13/19 02/13/19 Range/Units 17:07 17:30 22:36 WBC (4.0-11.0) K/uL RBC (4.30-5.90) M/uL Hgb (12.0-16.0) g/dL Hct (36.0-46.0) % MCV (80.0-98.0) fL MCH (27.0-32.0) pg MCHC (31.0-37.0) g/dL RDW Std Deviation (28.0-62.0) fl RDW Coeff of Humera (11.0-15.0) % Plt Count (150-400) K/uL MPV (7.40-12.00) fL Add Manual Diff Neutrophils % (Manual) (48.0-80.0) % Band Neutrophils % % Lymphocytes % (Manual) (16.0-40.0) % Monocytes % (Manual) (0.0-15.0) % Nucleated RBC % /100WBC Absolute Seg Neuts (1.4-5.7) Band Neutrophils # Lymphocytes # (Manual) (0.6-2.4) Monocytes # (Manual) (0.0-0.8) Nucleated RBCs # K/uL Lactate 3.0 H 1.2 (0.20-2.00) mmol/L Sodium 154 H (136-145) mmol/L Potassium 3.9 (3.5-5.1) mmol/L Chloride 116 H (98-107) mmol/L Carbon Dioxide 27.8 (21.0-32.0) mmol/L Anion Gap 14.1 BUN 29 H (7.0-18.0) mg/dL Creatinine 0.9 (0.6-1.0) mg/dL Est Cr Clr Drug Dosing 57.45 mL/min Estimated GFR (MDRD) > 60.0 ml/min BUN/Creatinine Ratio 32.22 Glucose 231 H (74-106) mg/dL Calcium 8.5 (8.5-10.1) mg/dL Phosphorus 2.6 (2.6-4.7) mg/dL Magnesium 2.6 H (1.8-2.4) mg/dL Troponin I < 0.050 (0.000-0.056) ng/mL Albumin 2.3 L (3.4-5.0) g/dL 02/14/19 02/14/19 02/14/19 Range/Units 05:11 05:11 05:11 WBC 24.66 H (4.0-11.0) K/uL RBC 3.94 L (4.30-5.90) M/uL Hgb 12.5 (12.0-16.0) g/dL Hct 39.0 (36.0-46.0) % MCV 99.0 H (80.0-98.0) fL MCH 31.7 (27.0-32.0) pg MCHC 32.1 (31.0-37.0) g/dL RDW Std Deviation 51.1 (28.0-62.0) fl RDW Coeff of Humera 14 (11.0-15.0) % Plt Count 191 (150-400) K/uL MPV 13.30 H (7.40-12.00) fL Add Manual Diff YES Neutrophils % (Manual) 80 (48.0-80.0) % Band Neutrophils % 5 % Lymphocytes % (Manual) 12 L (16.0-40.0) % Monocytes % (Manual) 3 (0.0-15.0) % Nucleated RBC % 0.0 /100WBC Absolute Seg Neuts 19.7 H (1.4-5.7) Band Neutrophils # 1.2 Lymphocytes # (Manual) 3.0 H (0.6-2.4) Monocytes # (Manual) 0.7 (0.0-0.8) Nucleated RBCs # 0 K/uL Lactate 1.2 (0.20-2.00) mmol/L Sodium 153 H (136-145) mmol/L Potassium 3.2 L (3.5-5.1) mmol/L Chloride 119 H (98-107) mmol/L Carbon Dioxide 24.8 (21.0-32.0) mmol/L Anion Gap BUN 23 H (7.0-18.0) mg/dL Creatinine 0.9 (0.6-1.0) mg/dL Est Cr Clr Drug Dosing 57.45 mL/min Estimated GFR (MDRD) > 60.0 ml/min BUN/Creatinine Ratio Glucose 239 H (74-106) mg/dL Calcium 8.4 L (8.5-10.1) mg/dL Phosphorus (2.6-4.7) mg/dL Magnesium (1.8-2.4) mg/dL Troponin I (0.000-0.056) ng/mL Albumin (3.4-5.0) g/dL Nino Results Last 24 Hours: Microbiology 02/13/19 11:40 Aerobic Blood Culture - Preliminary Blood - Venous - Lab Draw NO GROWTH AFTER 1 DAY Anaerobic Blood Culture - Preliminary NO GROWTH AFTER 1 DAY 02/13/19 11:25 Aerobic Blood Culture - Preliminary Blood - Venous NO GROWTH AFTER 1 DAY Anaerobic Blood Culture - Preliminary NO GROWTH AFTER 1 DAY Med Orders - Current: Current Medications Citalopram Hydrobromide (Celexa) 40 mg PO DAILY [facility] Last Admin: 02/14/19 08:59 Dose: 40 mg Diazepam (Valium.) 5 mg PO Q8H PRN PRN Reason: Agitation Heparin Sodium (Porcine) (Heparin Sodium) 5,000 units SUBCUT Q8H [facility] Last Admin: 02/14/19 06:41 Dose: 5,000 units Sodium Chloride (Normal Saline) 1,000 mls @ 125 mls/hr IV ASDIRECTED [facility] Last Admin: 02/14/19 08:05 Dose: 125 mls/hr Piperacillin Sod/Tazobactam (Sod 3.375 gm/ Sodium Chloride) 50 mls @ 100 mls/ hr IV Q6H [facility] Last Admin: 02/14/19 09:45 Dose: 100 mls/hr Pantoprazole Sodium 40 mg/ (Sodium Chloride) 10 mls @ 200 mls/hr IV Q24H [facility] Last Admin: 02/13/19 15:40 Dose: 200 mls/hr Ondansetron HCl (Zofran) 4 mg IVPUSH Q4H PRN PRN Reason: Nausea Quetiapine Fumarate (Seroquel) 50 mg PO BID [facility] Last Admin: 02/14/19 09:08 Dose: 50 mg Sodium Chloride (Saline Flush) 10 ml FLUSH ASDIRECTED PRN PRN Reason: Keep Vein Open Last Admin: 02/13/19 11:06 Dose: 10 ml Sodium Chloride (Saline Flush) 2.5 ml FLUSH ASDIRECTED PRN PRN Reason: Keep Vein Open Last Admin: 02/13/19 11:06 Dose: 2.5 ml Discontinued Medications Heparin Sodium (Porcine) (Heparin Sodium) 5,000 units SUBCUT Q8H [facility] Last Admin: 02/13/19 18:55 Dose: Not Given Ceftriaxone Sodium/Dextrose 1 (gm/ Premix) 50 mls @ 100 mls/hr IV ONETIME ONE Stop: 02/13/19 12:10 Last Admin: 02/13/19 12:25 Dose: 100 mls/hr Sodium Chloride (Normal Saline) 1,000 mls @ 500 mls/hr IV STAT ONE Stop: 02/13/19 13:40 Last Admin: 02/13/19 12:25 Dose: 500 mls/hr Levofloxacin/Dextrose 750 mg/ (Premix) 150 mls @ 100 mls/hr IV ONETIME ONE Stop: 02/13/19 13:49 Last Admin: 02/13/19 13:14 Dose: 100 mls/hr Piperacillin Sod/Tazobactam (Sod 3.375 gm/ Sodium Chloride) 50 mls @ 100 mls/ hr IV ONETIME ONE Stop: 02/13/19 12:52 Last Admin: 02/13/19 14:52 Dose: 100 mls/hr Sodium Chloride (Normal Saline) 1,000 mls @ 999 mls/hr IV STAT ONE Stop: 02/13/19 13:35 Last Admin: 02/13/19 13:14 Dose: 999 mls/hr Piperacillin Sod/Tazobactam (Sod 3.375 gm/ Sodium Chloride) 50 mls @ 100 mls/ hr IV Q6H [facility] Sodium Chloride (Normal Saline) 500 mls @ 999 mls/hr IV ONETIME ONE Stop: 02/13/19 19:09 Last Admin: 02/13/19 18:53 Dose: 999 mls/hr Lactated Ringer's (Ringers, Lactated) 500 mls @ 999 mls/hr IV ASDIRECTED [facility] Lactated Ringer's (Ringers, Lactated) 500 mls @ 999 mls/hr IV ONETIME ONE Stop: 02/14/19 01:38 Last Admin: 02/14/19 01:12 Dose: 999 mls/hr Potassium Chloride 20 meq/ (Premix) 50 mls @ 25 mls/hr IV ONETIME ONE Stop: 02/14/19 08:55 Last Admin: 02/14/19 08:01 Dose: 25 mls/hr Sodium Chloride (Normal Saline) 1,000 mls @ 999 mls/hr IV .Bolus ONE Stop: 02/14/19 11:21 Last Admin: 02/14/19 10:26 Dose: 999 mls/hr Ondansetron HCl (Zofran) 4 mg IVPUSH ONETIME ONE Stop: 02/13/19 10:33 Last Admin: 02/13/19 11:06 Dose: 4 mg - Exam General: No Acute Distress Neck: Supple Lungs: Clear to Auscultation, Normal Respiratory Effort GI/Abdominal Exam: Normal Bowel Sounds, Soft, Non-Tender Extremities: Non-Tender, No Pedal Edema - Problem List Review Problem List Initiated/Reviewed/Updated: Yes - My Orders Last 24 Hours: My Active Orders 02/13/19 13:44 Up ad Rina [RC] ASDIRECTED VTE/DVT Education [RC] PER UNIT ROUTINE Vital Signs [RC] Q1H Ondansetron [Zofran] 4 mg IVPUSH Q4H PRN Sequential Compression Device [OM.PC] Per Unit Routine Resuscitation Status Routine 02/13/19 13:45 Antiembolic Devices [RC] PER UNIT ROUTINE 02/13/19 13:52 diazePAM [Valium] 5 mg PO Q8H PRN 02/13/19 14:00 Sodium Chloride 0.9% [Normal Saline] 1,000 ml IV ASDIRECTED 02/13/19 15:30 Heparin Sodium 5,000 units SUBCUT Q8H Pantoprazole [ProTONIX IV] 40 mg Sodium Chloride 0.9% [Normal Saline] 10 ml IV Q24H 02/13/19 15:45 Piperacillin/Tazobactam [Piperacil-Tazobact] 3.375 gm Sodium Chloride 0.9% [ Normal Saline] 50 ml IV Q6H 02/13/19 21:00 QUEtiapine [SEROquel] 50 mg PO BID 02/14/19 09:00 Citalopram [Celexa] 40 mg PO DAILY 02/14/19 13:04 Transfer Patient (Change bed) [ADT] Routine 02/14/19 Lunch Clear Liquid Diet [DIET] 02/15/19 05:11 CBC WITH AUTO DIFF [HEME] AM CMP [COMPREHENSIVE METABOLIC PN,CMP] [CHEM] AM 02/16/19 05:11 CBC WITH AUTO DIFF [HEME] AM CMP [COMPREHENSIVE METABOLIC PN,CMP] [CHEM] AM - Plan Plan:: 68 yo female with sepsis, UTI, cholecystitis, and partial small bowel obstruction. We will continue zosyn and IV fluids. Will advance to clear liquid diet. Spoke with family and they do not want transfer.
[2019-02-14] MEDS: Pantoprazole 40 MG in Sodium Chloride 0.9% 10 ML IV SCH (15:12)
[2019-02-15] MEDS: Piperacillin/Tazobactam 3.375 GM in Sodium Chloride 0.9% 50 ML IV SCH ×4 (04:35→21:25)
[2019-02-15] MEDS: Heparin Sodium 5,000 Units/ML Vial SUBCUT SCH ×2 (06:48→15:40)
[2019-02-15 06:53] LABS: CHLORIDE,CL 125 mmol/L (98-107); SODIUM,NA 157 mmol/L (136-145)
[2019-02-15] MEDS: Sodium Chloride 0.9% 1,000 ML IV SCH (08:05)
[2019-02-15] MEDS: Citalopram 20 MG Tab PO SCH (08:48)
--- NOTE | 2019-02-15 12:02 | PCM.PN ---
- General Info Date of Service: 02/15/19 - Review of Systems Systems Review Comment:: nonverbal - Patient Data Vitals - Most Recent: Last Vital Signs Temp 36.7 C 02/15/19 08:00 Pulse 112 H 02/13/19 12:33 Resp 26 H 02/15/19 08:00 BP 110/54 L 02/15/19 08:00 Pulse Ox 90 L 02/15/19 08:00 Weight - Most Recent: 63.231 kg I&O - Last 24 Hours: Intake & Output 02/14/19 02/15/19 02/15/19 22:59 06:59 14:59 Intake Total 50 1651 Output Total 75 250 50 Balance -25 1401 -50 Lab Results Last 24 Hours: Laboratory Results - last 24 hr 02/13/19 02/15/19 02/15/19 Range/Units 12:53 06:05 06:05 WBC 16.79 H (4.0-11.0) K/uL RBC 4.13 L (4.30-5.90) M/uL Hgb 12.7 (12.0-16.0) g/dL Hct 41.0 (36.0-46.0) % MCV 99.3 H (80.0-98.0) fL MCH 30.8 (27.0-32.0) pg MCHC 31.0 (31.0-37.0) g/dL RDW Std Deviation 54.0 (28.0-62.0) fl RDW Coeff of Humera 15 (11.0-15.0) % Plt Count 188 (150-400) K/uL MPV 13.60 H (7.40-12.00) fL Add Manual Diff YES Neutrophils % (Manual) 80 (48.0-80.0) % Band Neutrophils % 9 % Lymphocytes % (Manual) 10 L (16.0-40.0) % Monocytes % (Manual) 1 (0.0-15.0) % Nucleated RBC % 0.0 /100WBC Absolute Seg Neuts 13.4 H (1.4-5.7) Band Neutrophils # 1.5 Lymphocytes # (Manual) 1.7 (0.6-2.4) Monocytes # (Manual) 0.2 (0.0-0.8) Nucleated RBCs # 0 K/uL Sodium 157 H (136-145) mmol/L Potassium 3.2 L (3.5-5.1) mmol/L Chloride 125 H (98-107) mmol/L Carbon Dioxide 23.7 (21.0-32.0) mmol/L BUN 19 H (7.0-18.0) mg/dL Creatinine 0.9 (0.6-1.0) mg/dL Est Cr Clr Drug Dosing 59.72 mL/min Estimated GFR (MDRD) > 60.0 ml/min Glucose 212 H (74-106) mg/dL Calcium 8.3 L (8.5-10.1) mg/dL Total Bilirubin 0.6 (0.2-1.0) mg/dL AST 12 L (15-37) IU/L ALT 18 (14-63) IU/L Alkaline Phosphatase 66 (46-116) U/L Total Protein 5.2 L (6.4-8.2) g/dL Albumin 1.4 L (3.4-5.0) g/dL Globulin 3.8 (2.6-4.0) g/dL Albumin/Globulin Ratio 0.4 L (0.9-1.6) Urine Color YELLOW Urine Appearance CLOUDY Urine pH 5.0 (5.0-8.0) Ur Specific Arvin >= 1.030 (1.001-1.035) Urine Protein 30 H (NEGATIVE) mg/dL Urine Glucose (UA) NEGATIVE (NEGATIVE) mg/dL Urine Ketones TRACE H (NEGATIVE) mg/dL Urine Occult Blood SMALL H (NEGATIVE) Urine Nitrite POSITIVE H (NEGATIVE) Urine Bilirubin SMALL H (NEGATIVE) Urine Ictotest POSITIVE Urine Urobilinogen 1.0 (<2.0) EU/dL Ur Leukocyte Esterase TRACE H (NEGATIVE) Urine RBC 2-5 (0-2/HPF) Urine WBC 10-15 (0-5/HPF) Ur Epithelial Cells MODERATE (NONE-FEW) Urine Bacteria 4+ H (NEGATIVE) Hyaline Casts 2-4 (0-2/LPF) Urine Mucus MODERATE (NONE-MOD) Urinalysis Comment Nino Results Last 24 Hours: Microbiology 02/13/19 11:40 Aerobic Blood Culture - Preliminary Blood - Venous - Lab Draw NO GROWTH AFTER 2 DAYS Anaerobic Blood Culture - Preliminary NO GROWTH AFTER 2 DAYS 02/13/19 11:25 Aerobic Blood Culture - Preliminary Blood - Venous NO GROWTH AFTER 2 DAYS Anaerobic Blood Culture - Preliminary NO GROWTH AFTER 2 DAYS 02/13/19 12:53 Urine Culture - Final Urine, Catheterized Klebsiella Pneumoniae Klebsiella Pneumoniae#2 Med Orders - Current: Current Medications Citalopram Hydrobromide (Celexa) 40 mg PO DAILY [facility] Last Admin: 02/15/19 08:48 Dose: 40 mg Diazepam (Valium.) 5 mg PO Q8H PRN PRN Reason: Agitation Heparin Sodium (Porcine) (Heparin Sodium) 5,000 units SUBCUT Q8H [facility] Last Admin: 02/15/19 06:48 Dose: Not Given Sodium Chloride (Normal Saline) 1,000 mls @ 125 mls/hr IV ASDIRECTED [facility] Last Admin: 02/15/19 08:05 Dose: 125 mls/hr Piperacillin Sod/Tazobactam (Sod 3.375 gm/ Sodium Chloride) 50 mls @ 100 mls/ hr IV Q6H [facility] Last Admin: 02/15/19 09:47 Dose: 100 mls/hr Pantoprazole Sodium 40 mg/ (Sodium Chloride) 10 mls @ 200 mls/hr IV Q24H [facility] Last Admin: 02/14/19 15:12 Dose: 200 mls/hr Ondansetron HCl (Zofran) 4 mg IVPUSH Q4H PRN PRN Reason: Nausea Quetiapine Fumarate (Seroquel) 50 mg PO BID [facility] Last Admin: 02/15/19 08:55 Dose: 50 mg Sodium Chloride (Saline Flush) 10 ml FLUSH ASDIRECTED PRN PRN Reason: Keep Vein Open Last Admin: 02/13/19 11:06 Dose: 10 ml Sodium Chloride (Saline Flush) 2.5 ml FLUSH ASDIRECTED PRN PRN Reason: Keep Vein Open Last Admin: 02/13/19 11:06 Dose: 2.5 ml Discontinued Medications Heparin Sodium (Porcine) (Heparin Sodium) 5,000 units SUBCUT Q8H [facility] Last Admin: 02/13/19 18:55 Dose: Not Given Ceftriaxone Sodium/Dextrose 1 (gm/ Premix) 50 mls @ 100 mls/hr IV ONETIME ONE Stop: 02/13/19 12:10 Last Admin: 02/13/19 12:25 Dose: 100 mls/hr Sodium Chloride (Normal Saline) 1,000 mls @ 500 mls/hr IV STAT ONE Stop: 02/13/19 13:40 Last Admin: 02/13/19 12:25 Dose: 500 mls/hr Levofloxacin/Dextrose 750 mg/ (Premix) 150 mls @ 100 mls/hr IV ONETIME ONE Stop: 02/13/19 13:49 Last Admin: 02/13/19 13:14 Dose: 100 mls/hr Piperacillin Sod/Tazobactam (Sod 3.375 gm/ Sodium Chloride) 50 mls @ 100 mls/ hr IV ONETIME ONE Stop: 02/13/19 12:52 Last Admin: 02/13/19 14:52 Dose: 100 mls/hr Sodium Chloride (Normal Saline) 1,000 mls @ 999 mls/hr IV STAT ONE Stop: 02/13/19 13:35 Last Admin: 02/13/19 13:14 Dose: 999 mls/hr Piperacillin Sod/Tazobactam (Sod 3.375 gm/ Sodium Chloride) 50 mls @ 100 mls/ hr IV Q6H [facility] Sodium Chloride (Normal Saline) 500 mls @ 999 mls/hr IV ONETIME ONE Stop: 02/13/19 19:09 Last Admin: 02/13/19 18:53 Dose: 999 mls/hr Lactated Ringer's (Ringers, Lactated) 500 mls @ 999 mls/hr IV ASDIRECTED [facility] Lactated Ringer's (Ringers, Lactated) 500 mls @ 999 mls/hr IV ONETIME ONE Stop: 02/14/19 01:38 Last Admin: 02/14/19 01:12 Dose: 999 mls/hr Potassium Chloride 20 meq/ (Premix) 50 mls @ 25 mls/hr IV ONETIME ONE Stop: 02/14/19 08:55 Last Admin: 02/14/19 08:01 Dose: 25 mls/hr Sodium Chloride (Normal Saline) 1,000 mls @ 999 mls/hr IV .Bolus ONE Stop: 02/14/19 11:21 Last Admin: 02/14/19 10:26 Dose: 999 mls/hr Ondansetron HCl (Zofran) 4 mg IVPUSH ONETIME ONE Stop: 02/13/19 10:33 Last Admin: 02/13/19 11:06 Dose: 4 mg - Exam General: No Acute Distress Lungs: Clear to Auscultation, Normal Respiratory Effort Cardiovascular: Regular Rate, Regular Rhythm GI/Abdominal Exam: Normal Bowel Sounds, Soft, No Distention, No Abnormal Bruit, No Mass, Tender Extremities: Non-Tender, No Pedal Edema - Problem List Review Problem List Initiated/Reviewed/Updated: Yes - My Orders Last 24 Hours: My Active Orders 02/14/19 13:04 Transfer Patient (Change bed) [ADT] Routine 02/14/19 Lunch Clear Liquid Diet [DIET] 02/16/19 05:11 CBC WITH AUTO DIFF [HEME] AM CMP [COMPREHENSIVE METABOLIC PN,CMP] [CHEM] AM - Plan Plan:: 68 yo female with sepsis, UTI, cholecystitis, and partial small bowel obstruction. Cholecystitis: continue zosyn Klebsella UTI: on antibiotics pSBO: resolving, on clear liquids DNR/DNI: family does not want transfer
[2019-02-15] MEDS: Pantoprazole 40 MG in Sodium Chloride 0.9% 10 ML IV SCH (15:40)
[2019-02-15] MEDS: Sodium Chloride 0.45% with KCl 1,000 ML IV SCH (16:06)
[2019-02-16] MEDS: Heparin Sodium 5,000 Units/ML Vial SUBCUT SCH ×4 (00:35→23:52)
[2019-02-16] MEDS: Piperacillin/Tazobactam 3.375 GM in Sodium Chloride 0.9% 50 ML IV SCH ×2 (04:22→09:47)
[2019-02-16] MEDS: Sodium Chloride 0.45% with KCl 1,000 ML IV SCH (05:43)
[2019-02-16 08:07] LABS: CHLORIDE,CL 127 mmol/L (98-107)
[2019-02-16 08:10] LABS: SODIUM,NA 160 mmol/L (136-145)
[2019-02-16] MEDS ORDERED: Dextrose 5% in Water 1,000 ML IV SCH (08:15)
[2019-02-16] MEDS: Citalopram 20 MG Tab PO SCH (09:12)
--- NOTE | 2019-02-16 11:58 | PCM.PN ---
- General Info Date of Service: 02/16/19 - Review of Systems Systems Review Comment:: nonverbal - Patient Data Vitals - Most Recent: Last Vital Signs Temp 36.4 C 02/16/19 11:33 Pulse 100 02/16/19 11:33 Resp 24 H 02/16/19 11:33 BP 115/76 02/16/19 11:33 Pulse Ox 91 L 02/16/19 11:33 Weight - Most Recent: 60 kg I&O - Last 24 Hours: Intake & Output 02/15/19 02/16/19 02/16/19 22:59 06:59 14:59 Intake Total 1055 55 Output Total 170 200 Balance 885 -145 Lab Results Last 24 Hours: Laboratory Results - last 24 hr 02/16/19 02/16/19 Range/Units 06:04 07:26 WBC 15.93 H (4.0-11.0) K/uL RBC 3.95 L (4.30-5.90) M/uL Hgb 12.2 (12.0-16.0) g/dL Hct 38.8 (36.0-46.0) % MCV 98.2 H (80.0-98.0) fL MCH 30.9 (27.0-32.0) pg MCHC 31.4 (31.0-37.0) g/dL RDW Std Deviation 54.4 (28.0-62.0) fl RDW Coeff of Humera 15 (11.0-15.0) % Plt Count 182 (150-400) K/uL MPV 13.00 H (7.40-12.00) fL Neut % (Auto) 88.3 H (48.0-80.0) % Lymph % (Auto) 7.0 L (16.0-40.0) % [place] % (Auto) 4.5 (0.0-15.0) % Eos % (Auto) 0.1 (0.0-7.0) % Baso % (Auto) 0.1 (0.0-1.5) % Neut # (Auto) 14.1 H (1.4-5.7) K/uL Lymph # (Auto) 1.1 (0.6-2.4) K/uL [place] # (Auto) 0.7 (0.0-0.8) K/uL Eos # (Auto) 0.0 (0.0-0.7) K/uL Baso # (Auto) 0.0 (0.0-0.1) K/uL Nucleated RBC % 0.0 /100WBC Nucleated RBCs # 0 K/uL Sodium 160 H (136-145) mmol/L Potassium 3.4 L (3.5-5.1) mmol/L Chloride 127 H (98-107) mmol/L Carbon Dioxide 21.6 (21.0-32.0) mmol/L BUN 17 (7.0-18.0) mg/dL Creatinine 0.6 (0.6-1.0) mg/dL Est Cr Clr Drug Dosing 85.00 mL/min Estimated GFR (MDRD) > 60.0 ml/min Glucose 153 H (74-106) mg/dL Calcium 7.9 L (8.5-10.1) mg/dL Total Bilirubin 0.5 (0.2-1.0) mg/dL AST 17 (15-37) IU/L ALT 13 L (14-63) IU/L Alkaline Phosphatase 70 (46-116) U/L Total Protein 4.5 L (6.4-8.2) g/dL Albumin 1.5 L (3.4-5.0) g/dL Globulin 3.0 (2.6-4.0) g/dL Albumin/Globulin Ratio 0.5 L (0.9-1.6) Nino Results Last 24 Hours: Microbiology 02/13/19 11:40 Aerobic Blood Culture - Preliminary Blood - Venous - Lab Draw NO GROWTH AFTER 3 DAYS Anaerobic Blood Culture - Preliminary NO GROWTH AFTER 3 DAYS 02/13/19 11:25 Aerobic Blood Culture - Preliminary Blood - Venous NO GROWTH AFTER 3 DAYS Anaerobic Blood Culture - Preliminary NO GROWTH AFTER 3 DAYS Med Orders - Current: Current Medications Citalopram Hydrobromide (Celexa) 40 mg PO DAILY [facility] Last Admin: 02/16/19 09:12 Dose: 40 mg Diazepam (Valium.) 5 mg PO Q8H PRN PRN Reason: Agitation Heparin Sodium (Porcine) (Heparin Sodium) 5,000 units SUBCUT Q8H [facility] Last Admin: 02/16/19 08:56 Dose: 5,000 units Pantoprazole Sodium 40 mg/ (Sodium Chloride) 10 mls @ 200 mls/hr IV Q24H [facility] Last Admin: 02/15/19 15:40 Dose: 200 mls/hr Dextrose/Water (Dextrose 5% In Water) 1,000 mls @ 100 mls/hr IV ASDIRECTED [facility] Last Admin: 02/16/19 08:20 Dose: 100 mls/hr Ceftriaxone Sodium/Dextrose 1 (gm/ Premix) 50 mls @ 100 mls/hr IV Q24H [facility] Ondansetron HCl (Zofran) 4 mg IVPUSH Q4H PRN PRN Reason: Nausea Quetiapine Fumarate (Seroquel) 50 mg PO BID [facility] Last Admin: 02/16/19 09:14 Dose: 50 mg Sodium Chloride (Saline Flush) 10 ml FLUSH ASDIRECTED PRN PRN Reason: Keep Vein Open Last Admin: 02/13/19 11:06 Dose: 10 ml Sodium Chloride (Saline Flush) 2.5 ml FLUSH ASDIRECTED PRN PRN Reason: Keep Vein Open Last Admin: 02/13/19 11:06 Dose: 2.5 ml Discontinued Medications Heparin Sodium (Porcine) (Heparin Sodium) 5,000 units SUBCUT Q8H [facility] Last Admin: 02/13/19 18:55 Dose: Not Given Ceftriaxone Sodium/Dextrose 1 (gm/ Premix) 50 mls @ 100 mls/hr IV ONETIME ONE Stop: 02/13/19 12:10 Last Admin: 02/13/19 12:25 Dose: 100 mls/hr Sodium Chloride (Normal Saline) 1,000 mls @ 500 mls/hr IV STAT ONE Stop: 02/13/19 13:40 Last Admin: 02/13/19 12:25 Dose: 500 mls/hr Levofloxacin/Dextrose 750 mg/ (Premix) 150 mls @ 100 mls/hr IV ONETIME ONE Stop: 02/13/19 13:49 Last Admin: 02/13/19 13:14 Dose: 100 mls/hr Piperacillin Sod/Tazobactam (Sod 3.375 gm/ Sodium Chloride) 50 mls @ 100 mls/ hr IV ONETIME ONE Stop: 02/13/19 12:52 Last Admin: 02/13/19 14:52 Dose: 100 mls/hr Sodium Chloride (Normal Saline) 1,000 mls @ 999 mls/hr IV STAT ONE Stop: 02/13/19 13:35 Last Admin: 02/13/19 13:14 Dose: 999 mls/hr Piperacillin Sod/Tazobactam (Sod 3.375 gm/ Sodium Chloride) 50 mls @ 100 mls/ hr IV Q6H [facility] Sodium Chloride (Normal Saline) 1,000 mls @ 125 mls/hr IV ASDIRECTED [facility] Last Admin: 02/15/19 08:05 Dose: 125 mls/hr Piperacillin Sod/Tazobactam (Sod 3.375 gm/ Sodium Chloride) 50 mls @ 100 mls/ hr IV Q6H [facility] Last Admin: 02/16/19 09:47 Dose: 100 mls/hr Sodium Chloride (Normal Saline) 500 mls @ 999 mls/hr IV ONETIME ONE Stop: 02/13/19 19:09 Last Admin: 02/13/19 18:53 Dose: 999 mls/hr Lactated Ringer's (Ringers, Lactated) 500 mls @ 999 mls/hr IV ASDIRECTED [facility] Lactated Ringer's (Ringers, Lactated) 500 mls @ 999 mls/hr IV ONETIME ONE Stop: 02/14/19 01:38 Last Admin: 02/14/19 01:12 Dose: 999 mls/hr Potassium Chloride 20 meq/ (Premix) 50 mls @ 25 mls/hr IV ONETIME ONE Stop: 02/14/19 08:55 Last Admin: 02/14/19 08:01 Dose: 25 mls/hr Sodium Chloride (Normal Saline) 1,000 mls @ 999 mls/hr IV .Bolus ONE Stop: 02/14/19 11:21 Last Admin: 02/14/19 10:26 Dose: 999 mls/hr Potassium Chloride/Sodium Chloride (1/2 Ns With 20 Meq Kcl) 1,000 mls @ 75 mls/ hr IV ASDIRECTED [facility] Last Admin: 02/16/19 05:43 Dose: 75 mls/hr Ondansetron HCl (Zofran) 4 mg IVPUSH ONETIME ONE Stop: 02/13/19 10:33 Last Admin: 02/13/19 11:06 Dose: 4 mg - Exam General: No Acute Distress Lungs: Clear to Auscultation, Normal Respiratory Effort Cardiovascular: Regular Rate, Regular Rhythm GI/Abdominal Exam: Soft, Non-Tender Extremities: Non-Tender, No Pedal Edema Skin: Warm, Dry, Intact - Problem List Review Problem List Initiated/Reviewed/Updated: Yes - Plan Plan:: 68 yo female with sepsis, UTI, cholecystitis, and partial small bowel obstruction. Cholecystitis: d/c zosyn due to hypernatremia, will switch to Rocephin and Flagyl Klebsella UTI: on antibiotics pSBO: resolving, on clear liquids Hypernatremia: switch to D5W DNR/DNI: family does not want transfer
[2019-02-16] MEDS: metroNIDAZOLE/Normal Saline 500 MG in Premix Bag 1 BAG IV SCH ×3 (12:39→23:52)
[2019-02-16 13:23] LABS: CHLORIDE,CL 125 mmol/L (98-107); SODIUM,NA 157 mmol/L (136-145)
[2019-02-16] MEDS: cefTRIAXone 1 GM in Premix Bag 1 BAG IV SCH (15:16)
[2019-02-16] MEDS: Pantoprazole 40 MG in Sodium Chloride 0.9% 10 ML IV SCH (15:20)
[2019-02-17] MEDS: Heparin Sodium 5,000 Units/ML Vial SUBCUT SCH ×3 (06:43→23:54)
[2019-02-17] MEDS: metroNIDAZOLE/Normal Saline 500 MG in Premix Bag 1 BAG IV SCH ×3 (06:43→17:00)
[2019-02-17] MEDS: Citalopram 20 MG Tab PO SCH (09:40)
[2019-02-17 11:26] LABS: CHLORIDE,CL 120 mmol/L (98-107); SODIUM,NA 152 mmol/L (136-145)
--- NOTE | 2019-02-17 13:27 | PCM.PN ---
- General Info Date of Service: 02/17/19 - Review of Systems Systems Review Comment:: nonverbal - Patient Data Vitals - Most Recent: Last Vital Signs Temp 36.8 C 02/17/19 12:00 Pulse 100 02/17/19 12:00 Resp 18 02/17/19 12:00 BP 110/68 02/17/19 12:00 Pulse Ox 93 L 02/17/19 12:00 Weight - Most Recent: 67.5 kg I&O - Last 24 Hours: Intake & Output 02/16/19 02/17/19 02/17/19 22:59 06:59 14:59 Intake Total 1175 759 100 Output Total 100 318 Balance 1075 441 100 Lab Results Last 24 Hours: Laboratory Results - last 24 hr 02/16/19 02/17/19 02/17/19 Range/Units 12:55 10:46 10:46 WBC 16.75 H (4.0-11.0) K/uL RBC 4.13 L (4.30-5.90) M/uL Hgb 12.9 (12.0-16.0) g/dL Hct 39.8 (36.0-46.0) % MCV 96.4 (80.0-98.0) fL MCH 31.2 (27.0-32.0) pg MCHC 32.4 (31.0-37.0) g/dL RDW Std Deviation 54.0 (28.0-62.0) fl RDW Coeff of Humera 16 H (11.0-15.0) % Plt Count 224 (150-400) K/uL MPV 12.90 H (7.40-12.00) fL Add Manual Diff YES Neutrophils % (Manual) 85 H (48.0-80.0) % Band Neutrophils % 3 % Lymphocytes % (Manual) 9 L (16.0-40.0) % Monocytes % (Manual) 3 (0.0-15.0) % Nucleated RBC % 0.0 /100WBC Absolute Seg Neuts 14.2 H (1.4-5.7) Band Neutrophils # 0.5 Lymphocytes # (Manual) 1.5 (0.6-2.4) Monocytes # (Manual) 0.5 (0.0-0.8) Nucleated RBCs # 0 K/uL Sodium 157 H 152 H (136-145) mmol/L Potassium 3.1 L 4.2 (3.5-5.1) mmol/L Chloride 125 H 120 H (98-107) mmol/L Carbon Dioxide 25.6 22.3 (21.0-32.0) mmol/L BUN 16 13 (7.0-18.0) mg/dL Creatinine 0.7 0.6 (0.6-1.0) mg/dL Est Cr Clr Drug Dosing 72.86 93.78 mL/min Estimated GFR (MDRD) > 60.0 > 60.0 ml/min Glucose 201 H 193 H (74-106) mg/dL Calcium 8.2 L 8.3 L (8.5-10.1) mg/dL Nino Results Last 24 Hours: Microbiology 02/13/19 11:40 Aerobic Blood Culture - Preliminary Blood - Venous - Lab Draw NO GROWTH AFTER 4 DAYS Anaerobic Blood Culture - Preliminary NO GROWTH AFTER 4 DAYS 02/13/19 11:25 Aerobic Blood Culture - Preliminary Blood - Venous NO GROWTH AFTER 4 DAYS Anaerobic Blood Culture - Preliminary NO GROWTH AFTER 4 DAYS Med Orders - Current: Current Medications Citalopram Hydrobromide (Celexa) 40 mg PO DAILY [facility] Last Admin: 02/17/19 09:40 Dose: 40 mg Diazepam (Valium.) 5 mg PO Q8H PRN PRN Reason: Agitation Heparin Sodium (Porcine) (Heparin Sodium) 5,000 units SUBCUT Q8H [facility] Last Admin: 02/17/19 06:43 Dose: 5,000 units Pantoprazole Sodium 40 mg/ (Sodium Chloride) 10 mls @ 200 mls/hr IV Q24H [facility] Last Admin: 02/16/19 15:20 Dose: 200 mls/hr Ceftriaxone Sodium/Dextrose 1 (gm/ Premix) 50 mls @ 100 mls/hr IV Q24H [facility] Last Admin: 02/16/19 15:16 Dose: 100 mls/hr Metronidazole 500 mg/ Premix 100 mls @ 100 mls/hr IV QID [facility] Last Admin: 02/17/19 12:14 Dose: 100 mls/hr Potassium Chloride 30 meq/ (Dextrose/Water) 1,015 mls @ 100 mls/hr IV ASDIRECTED [facility] Last Admin: 02/17/19 04:24 Dose: 100 mls/hr Ondansetron HCl (Zofran) 4 mg IVPUSH Q4H PRN PRN Reason: Nausea Quetiapine Fumarate (Seroquel) 50 mg PO BID [facility] Last Admin: 02/17/19 09:40 Dose: 50 mg Sodium Chloride (Saline Flush) 10 ml FLUSH ASDIRECTED PRN PRN Reason: Keep Vein Open Last Admin: 02/13/19 11:06 Dose: 10 ml Sodium Chloride (Saline Flush) 2.5 ml FLUSH ASDIRECTED PRN PRN Reason: Keep Vein Open Last Admin: 02/13/19 11:06 Dose: 2.5 ml Discontinued Medications Heparin Sodium (Porcine) (Heparin Sodium) 5,000 units SUBCUT Q8H [facility] Last Admin: 02/13/19 18:55 Dose: Not Given Ceftriaxone Sodium/Dextrose 1 (gm/ Premix) 50 mls @ 100 mls/hr IV ONETIME ONE Stop: 02/13/19 12:10 Last Admin: 02/13/19 12:25 Dose: 100 mls/hr Sodium Chloride (Normal Saline) 1,000 mls @ 500 mls/hr IV STAT ONE Stop: 02/13/19 13:40 Last Admin: 02/13/19 12:25 Dose: 500 mls/hr Levofloxacin/Dextrose 750 mg/ (Premix) 150 mls @ 100 mls/hr IV ONETIME ONE Stop: 02/13/19 13:49 Last Admin: 02/13/19 13:14 Dose: 100 mls/hr Piperacillin Sod/Tazobactam (Sod 3.375 gm/ Sodium Chloride) 50 mls @ 100 mls/ hr IV ONETIME ONE Stop: 02/13/19 12:52 Last Admin: 02/13/19 14:52 Dose: 100 mls/hr Sodium Chloride (Normal Saline) 1,000 mls @ 999 mls/hr IV STAT ONE Stop: 02/13/19 13:35 Last Admin: 02/13/19 13:14 Dose: 999 mls/hr Piperacillin Sod/Tazobactam (Sod 3.375 gm/ Sodium Chloride) 50 mls @ 100 mls/ hr IV Q6H [facility] Sodium Chloride (Normal Saline) 1,000 mls @ 125 mls/hr IV ASDIRECTED [facility] Last Admin: 02/15/19 08:05 Dose: 125 mls/hr Piperacillin Sod/Tazobactam (Sod 3.375 gm/ Sodium Chloride) 50 mls @ 100 mls/ hr IV Q6H [facility] Last Admin: 02/16/19 09:47 Dose: 100 mls/hr Sodium Chloride (Normal Saline) 500 mls @ 999 mls/hr IV ONETIME ONE Stop: 02/13/19 19:09 Last Admin: 02/13/19 18:53 Dose: 999 mls/hr Lactated Ringer's (Ringers, Lactated) 500 mls @ 999 mls/hr IV ASDIRECTED [facility] Lactated Ringer's (Ringers, Lactated) 500 mls @ 999 mls/hr IV ONETIME ONE Stop: 02/14/19 01:38 Last Admin: 02/14/19 01:12 Dose: 999 mls/hr Potassium Chloride 20 meq/ (Premix) 50 mls @ 25 mls/hr IV ONETIME ONE Stop: 02/14/19 08:55 Last Admin: 02/14/19 08:01 Dose: 25 mls/hr Sodium Chloride (Normal Saline) 1,000 mls @ 999 mls/hr IV .Bolus ONE Stop: 02/14/19 11:21 Last Admin: 02/14/19 10:26 Dose: 999 mls/hr Potassium Chloride/Sodium Chloride (1/2 Ns With 20 Meq Kcl) 1,000 mls @ 75 mls/ hr IV ASDIRECTED [facility] Last Admin: 02/16/19 05:43 Dose: 75 mls/hr Dextrose/Water (Dextrose 5% In Water) 1,000 mls @ 100 mls/hr IV ASDIRECTED [facility] Last Admin: 02/16/19 08:20 Dose: 100 mls/hr Ondansetron HCl (Zofran) 4 mg IVPUSH ONETIME ONE Stop: 02/13/19 10:33 Last Admin: 02/13/19 11:06 Dose: 4 mg - Exam General: Alert, Oriented Lungs: Clear to Auscultation, Normal Respiratory Effort Cardiovascular: Regular Rate, Regular Rhythm GI/Abdominal Exam: Normal Bowel Sounds, Soft, Non-Tender Extremities: Normal Range of Motion, Non-Tender Skin: Warm, Dry, Intact Neurological: No New Focal Deficit - Problem List Review Problem List Initiated/Reviewed/Updated: Yes - My Orders Last 24 Hours: My Active Orders 02/16/19 18:26 Remove Cooper Catheter [Urinary Catheter Removal] [RC] Per Unit Routine - Plan Plan:: 68 yo female with sepsis, UTI, cholecystitis, and partial small bowel obstruction. Cholecystitis:continue Rocephin and Flagyl Klebsella UTI: on antibiotics pSBO: resolving advance to regular diet Hypernatremia: Fluids of D5W DNR/DNI: family does not want transfer.
[2019-02-17] MEDS: Pantoprazole 40 MG in Sodium Chloride 0.9% 10 ML IV SCH (15:03)
[2019-02-17] MEDS: cefTRIAXone 1 GM in Premix Bag 1 BAG IV SCH (15:08)
[2019-02-17] MEDS: Dextrose 5% in Water 1,000 ML IV SCH (16:58)
[2019-02-18] MEDS: Dextrose 5% in Water 1,000 ML IV SCH ×2 (02:53→14:54)
[2019-02-18] MEDS: metroNIDAZOLE/Normal Saline 500 MG in Premix Bag 1 BAG IV SCH ×5 (06:34→19:16)
[2019-02-18] MEDS: Heparin Sodium 5,000 Units/ML Vial SUBCUT SCH ×3 (06:36→23:26)
[2019-02-18 09:41] LABS: CHLORIDE,CL 116 mmol/L (98-107); SODIUM,NA 149 mmol/L (136-145)
[2019-02-18] MEDS: Citalopram 20 MG Tab PO SCH (10:12)
--- NOTE | 2019-02-18 10:48 | PCM.PN ---
<Bridget Armendariz M - Last Filed: 02/18/19 11:07> - General Info Date of Service: 02/18/19 Admission Dx/Problem (Free Text): Admission Diagnosis/Problem Admission Diagnosis/Problem Sepsis Subjective Update: Non verbal, no family at bedside. Alert. - Patient Data Vitals - Most Recent: Last Vital Signs Temp 97.5 F 02/18/19 08:00 Pulse 102 H 02/18/19 08:00 Resp 16 02/18/19 08:00 BP 127/75 02/18/19 08:00 Pulse Ox 102 H 02/18/19 08:00 Weight - Most Recent: 69 kg I&O - Last 24 Hours: Intake & Output 02/17/19 02/18/19 02/18/19 22:59 06:59 14:59 Intake Total 1490 1109 Balance 1490 1109 Lab Results Last 24 Hours: Laboratory Results - last 24 hr 02/17/19 02/17/19 02/18/19 Range/Units 10:46 10:46 08:26 WBC 16.75 H (4.0-11.0) K/uL RBC 4.13 L (4.30-5.90) M/uL Hgb 12.9 (12.0-16.0) g/dL Hct 39.8 (36.0-46.0) % MCV 96.4 (80.0-98.0) fL MCH 31.2 (27.0-32.0) pg MCHC 32.4 (31.0-37.0) g/dL RDW Std Deviation 54.0 (28.0-62.0) fl RDW Coeff of Humera 16 H (11.0-15.0) % Plt Count 224 (150-400) K/uL MPV 12.90 H (7.40-12.00) fL Add Manual Diff YES Neutrophils % (Manual) 85 H (48.0-80.0) % Band Neutrophils % 3 % Lymphocytes % (Manual) 9 L (16.0-40.0) % Monocytes % (Manual) 3 (0.0-15.0) % Nucleated RBC % 0.0 /100WBC Absolute Seg Neuts 14.2 H (1.4-5.7) Band Neutrophils # 0.5 Lymphocytes # (Manual) 1.5 (0.6-2.4) Monocytes # (Manual) 0.5 (0.0-0.8) Nucleated RBCs # 0 K/uL Sodium 152 H 149 H (136-145) mmol/L Potassium 4.2 3.6 (3.5-5.1) mmol/L Chloride 120 H 116 H (98-107) mmol/L Carbon Dioxide 22.3 19.6 L (21.0-32.0) mmol/L BUN 13 10 (7.0-18.0) mg/dL Creatinine 0.6 0.5 L (0.6-1.0) mg/dL Est Cr Clr Drug Dosing 93.78 112.54 mL/min Estimated GFR (MDRD) > 60.0 > 60.0 ml/min Glucose 193 H 198 H (74-106) mg/dL Calcium 8.3 L 7.4 L (8.5-10.1) mg/dL 02/18/19 Range/Units 08:55 WBC 15.84 H (4.0-11.0) K/uL RBC 4.23 L (4.30-5.90) M/uL Hgb 13.1 (12.0-16.0) g/dL Hct 40.2 (36.0-46.0) % MCV 95.0 (80.0-98.0) fL MCH 31.0 (27.0-32.0) pg MCHC 32.6 (31.0-37.0) g/dL RDW Std Deviation 53.2 (28.0-62.0) fl RDW Coeff of Humera 15 (11.0-15.0) % Plt Count 255 (150-400) K/uL MPV 12.20 H (7.40-12.00) fL Add Manual Diff YES Neutrophils % (Manual) 71 (48.0-80.0) % Band Neutrophils % 14 % Lymphocytes % (Manual) 8 L (16.0-40.0) % Monocytes % (Manual) 7 (0.0-15.0) % Nucleated RBC % 0.0 /100WBC Absolute Seg Neuts 11.2 H (1.4-5.7) Band Neutrophils # 2.2 Lymphocytes # (Manual) 1.3 (0.6-2.4) Monocytes # (Manual) 1.1 H (0.0-0.8) Nucleated RBCs # 0 K/uL Sodium (136-145) mmol/L Potassium (3.5-5.1) mmol/L Chloride (98-107) mmol/L Carbon Dioxide (21.0-32.0) mmol/L BUN (7.0-18.0) mg/dL Creatinine (0.6-1.0) mg/dL Est Cr Clr Drug Dosing mL/min Estimated GFR (MDRD) ml/min Glucose (74-106) mg/dL Calcium (8.5-10.1) mg/dL Nino Results Last 24 Hours: Microbiology 02/13/19 11:40 Aerobic Blood Culture - Preliminary Blood - Venous - Lab Draw NO GROWTH AFTER 4 DAYS Anaerobic Blood Culture - Preliminary NO GROWTH AFTER 4 DAYS 02/13/19 11:25 Aerobic Blood Culture - Preliminary Blood - Venous NO GROWTH AFTER 4 DAYS Anaerobic Blood Culture - Preliminary NO GROWTH AFTER 4 DAYS Med Orders - Current: Current Medications Citalopram Hydrobromide (Celexa) 40 mg PO DAILY [facility] Last Admin: 02/18/19 10:12 Dose: 40 mg Diazepam (Valium.) 5 mg PO Q8H PRN PRN Reason: Agitation Heparin Sodium (Porcine) (Heparin Sodium) 5,000 units SUBCUT Q8H [facility] Last Admin: 02/18/19 06:36 Dose: 5,000 units Pantoprazole Sodium 40 mg/ (Sodium Chloride) 10 mls @ 200 mls/hr IV Q24H [facility] Last Admin: 02/17/19 15:03 Dose: 200 mls/hr Ceftriaxone Sodium/Dextrose 1 (gm/ Premix) 50 mls @ 100 mls/hr IV Q24H [facility] Last Admin: 02/17/19 15:08 Dose: 100 mls/hr Metronidazole 500 mg/ Premix 100 mls @ 100 mls/hr IV QID [facility] Last Admin: 02/18/19 06:34 Dose: 100 mls/hr Dextrose/Water (Dextrose 5% In Water) 1,000 mls @ 100 mls/hr IV ASDIRECTED [facility] Last Admin: 02/18/19 02:53 Dose: 100 mls/hr Ondansetron HCl (Zofran) 4 mg IVPUSH Q4H PRN PRN Reason: Nausea Quetiapine Fumarate (Seroquel) 50 mg PO BID [facility] Last Admin: 02/18/19 10:12 Dose: 50 mg Sodium Chloride (Saline Flush) 10 ml FLUSH ASDIRECTED PRN PRN Reason: Keep Vein Open Last Admin: 02/13/19 11:06 Dose: 10 ml Sodium Chloride (Saline Flush) 2.5 ml FLUSH ASDIRECTED PRN PRN Reason: Keep Vein Open Last Admin: 02/13/19 11:06 Dose: 2.5 ml Discontinued Medications Heparin Sodium (Porcine) (Heparin Sodium) 5,000 units SUBCUT Q8H [facility] Last Admin: 02/13/19 18:55 Dose: Not Given Ceftriaxone Sodium/Dextrose 1 (gm/ Premix) 50 mls @ 100 mls/hr IV ONETIME ONE Stop: 02/13/19 12:10 Last Admin: 02/13/19 12:25 Dose: 100 mls/hr Sodium Chloride (Normal Saline) 1,000 mls @ 500 mls/hr IV STAT ONE Stop: 02/13/19 13:40 Last Admin: 02/13/19 12:25 Dose: 500 mls/hr Levofloxacin/Dextrose 750 mg/ (Premix) 150 mls @ 100 mls/hr IV ONETIME ONE Stop: 02/13/19 13:49 Last Admin: 02/13/19 13:14 Dose: 100 mls/hr Piperacillin Sod/Tazobactam (Sod 3.375 gm/ Sodium Chloride) 50 mls @ 100 mls/ hr IV ONETIME ONE Stop: 02/13/19 12:52 Last Admin: 02/13/19 14:52 Dose: 100 mls/hr Sodium Chloride (Normal Saline) 1,000 mls @ 999 mls/hr IV STAT ONE Stop: 02/13/19 13:35 Last Admin: 02/13/19 13:14 Dose: 999 mls/hr Piperacillin Sod/Tazobactam (Sod 3.375 gm/ Sodium Chloride) 50 mls @ 100 mls/ hr IV Q6H [facility] Sodium Chloride (Normal Saline) 1,000 mls @ 125 mls/hr IV ASDIRECTED [facility] Last Admin: 02/15/19 08:05 Dose: 125 mls/hr Piperacillin Sod/Tazobactam (Sod 3.375 gm/ Sodium Chloride) 50 mls @ 100 mls/ hr IV Q6H [facility] Last Admin: 02/16/19 09:47 Dose: 100 mls/hr Sodium Chloride (Normal Saline) 500 mls @ 999 mls/hr IV ONETIME ONE Stop: 02/13/19 19:09 Last Admin: 02/13/19 18:53 Dose: 999 mls/hr Lactated Ringer's (Ringers, Lactated) 500 mls @ 999 mls/hr IV ASDIRECTED [facility] Lactated Ringer's (Ringers, Lactated) 500 mls @ 999 mls/hr IV ONETIME ONE Stop: 02/14/19 01:38 Last Admin: 02/14/19 01:12 Dose: 999 mls/hr Potassium Chloride 20 meq/ (Premix) 50 mls @ 25 mls/hr IV ONETIME ONE Stop: 02/14/19 08:55 Last Admin: 02/14/19 08:01 Dose: 25 mls/hr Sodium Chloride (Normal Saline) 1,000 mls @ 999 mls/hr IV .Bolus ONE Stop: 02/14/19 11:21 Last Admin: 02/14/19 10:26 Dose: 999 mls/hr Potassium Chloride/Sodium Chloride (1/2 Ns With 20 Meq Kcl) 1,000 mls @ 75 mls/ hr IV ASDIRECTED [facility] Last Admin: 02/16/19 05:43 Dose: 75 mls/hr Dextrose/Water (Dextrose 5% In Water) 1,000 mls @ 100 mls/hr IV ASDIRECTED [facility] Last Admin: 02/16/19 08:20 Dose: 100 mls/hr Potassium Chloride 30 meq/ (Dextrose/Water) 1,015 mls @ 100 mls/hr IV ASDIRECTED [facility] Last Admin: 02/17/19 04:24 Dose: 100 mls/hr Ondansetron HCl (Zofran) 4 mg IVPUSH ONETIME ONE Stop: 02/13/19 10:33 Last Admin: 02/13/19 11:06 Dose: 4 mg - Exam General: Alert, Cooperative, No Acute Distress Lungs: Clear to Auscultation, Normal Respiratory Effort Cardiovascular: Regular Rate, Regular Rhythm GI/Abdominal Exam: Normal Bowel Sounds, Soft, Non-Tender, No Distention Extremities: Normal Inspection, Normal Range of Motion, Non-Tender, No Pedal Edema Neurological: No New Focal Deficit Psy/Mental Status: Alert, Normal Affect, Normal Mood - Problem List & Annotations (1) UTI (urinary tract infection) SNOMED Code(s): 44646058 Code(s): N39.0 - URINARY TRACT INFECTION, SITE NOT SPECIFIED Status: Acute Current Visit: Yes (2) SBO (small bowel obstruction) SNOMED Code(s): 416199048 Code(s): K56.609 - UNSP INTESTNL OBST, UNSP TO PARTIAL VERSUS COMPLETE OBST Status: Acute Current Visit: Yes (3) Cholecystitis SNOMED Code(s): 18111468 Code(s): K81.9 - CHOLECYSTITIS, UNSPECIFIED Status: Acute Current Visit: Yes (4) Sepsis SNOMED Code(s): 61926839 Code(s): A41.9 - SEPSIS, UNSPECIFIED ORGANISM Status: Resolved Current Visit: Yes Qualifiers: Sepsis type: sepsis due to unspecified organism Qualified Code(s): A41.9 - Sepsis, unspecified organism (5) Hypernatremia SNOMED Code(s): 459162474 Code(s): E87.0 - HYPEROSMOLALITY AND HYPERNATREMIA Status: Acute Current Visit: Yes - Problem List Review Problem List Initiated/Reviewed/Updated: Yes - My Orders Last 24 Hours: My Active Orders 02/17/19 16:45 Dextrose 5% in Water 1,000 ml IV ASDIRECTED 02/17/19 Lunch Regular Diet [DIET] - Plan Plan:: 68 yo female with sepsis, UTI, cholecystitis, and partial small bowel obstruction. 1. Cholecystitis: Leukocytosis stable. continue Rocephin and Flagyl 2. Klebsiella UTI: Continue Rocephin. 3. pSBO: BM yesterday. Diet advanced to regular diet. No vomiting 4. Hypernatremia: Na 149 today. Continue Fluids of D5W, recheck this afternoon. DNR/DNI: family does not want transfer. VTE prophylaxis: Heparin Dispo: 1-2 days <Kendrick Eldrideg - Last Filed: 02/18/19 15:04> - General Info Admission Dx/Problem (Free Text): I have seen and examined to patient independently of Bridget Armendariz CNP. I have discussed the case for care of this patient with her. I have reviewed and approve of the plan of care as outlined by IGNACIO. Please see orders. Pending placement for this patient. - Patient Data Vitals - Most Recent: Last Vital Signs Temp 35.6 C 02/18/19 11:47 Pulse 108 H 02/18/19 11:47 Resp 22 H 02/18/19 11:47 BP 124/89 02/18/19 11:47 Pulse Ox 96 02/18/19 11:47 I&O - Last 24 Hours: Intake & Output 02/18/19 02/18/19 02/18/19 06:59 14:59 22:59 Intake Total 1109 100 Balance 1109 100 Lab Results Last 24 Hours: Laboratory Results - last 24 hr 02/18/19 02/18/19 02/18/19 Range/Units 08:26 08:55 14:12 WBC 15.84 H (4.0-11.0) K/uL RBC 4.23 L (4.30-5.90) M/uL Hgb 13.1 (12.0-16.0) g/dL Hct 40.2 (36.0-46.0) % MCV 95.0 (80.0-98.0) fL MCH 31.0 (27.0-32.0) pg MCHC 32.6 (31.0-37.0) g/dL RDW Std Deviation 53.2 (28.0-62.0) fl RDW Coeff of Humera 15 (11.0-15.0) % Plt Count 255 (150-400) K/uL MPV 12.20 H (7.40-12.00) fL Add Manual Diff YES Neutrophils % (Manual) 71 (48.0-80.0) % Band Neutrophils % 14 % Lymphocytes % (Manual) 8 L (16.0-40.0) % Monocytes % (Manual) 7 (0.0-15.0) % Nucleated RBC % 0.0 /100WBC Absolute Seg Neuts 11.2 H (1.4-5.7) Band Neutrophils # 2.2 Lymphocytes # (Manual) 1.3 (0.6-2.4) Monocytes # (Manual) 1.1 H (0.0-0.8) Nucleated RBCs # 0 K/uL Sodium 149 H 147 H (136-145) mmol/L Potassium 3.6 3.4 L (3.5-5.1) mmol/L Chloride 116 H 114 H (98-107) mmol/L Carbon Dioxide 19.6 L 22.4 (21.0-32.0) mmol/L BUN 10 9 (7.0-18.0) mg/dL Creatinine 0.5 L 0.5 L (0.6-1.0) mg/dL Est Cr Clr Drug Dosing 112.54 112.54 mL/min Estimated GFR (MDRD) > 60.0 > 60.0 ml/min Glucose 198 H 238 H (74-106) mg/dL Calcium 7.4 L 7.2 L (8.5-10.1) mg/dL Nino Results Last 24 Hours: Microbiology 02/13/19 11:40 Aerobic Blood Culture - Final Blood - Venous - Lab Draw NO GROWTH AFTER 5 DAYS Anaerobic Blood Culture - Final NO GROWTH AFTER 5 DAYS 02/13/19 11:25 Aerobic Blood Culture - Final Blood - Venous NO GROWTH AFTER 5 DAYS Anaerobic Blood Culture - Final NO GROWTH AFTER 5 DAYS Med Orders - Current: Current Medications Citalopram Hydrobromide (Celexa) 40 mg PO DAILY [facility] Last Admin: 02/18/19 10:12 Dose: 40 mg Diazepam (Valium.) 5 mg PO Q8H PRN PRN Reason: Agitation Heparin Sodium (Porcine) (Heparin Sodium) 5,000 units SUBCUT Q8H [facility] Last Admin: 02/18/19 15:01 Dose: 5,000 units Pantoprazole Sodium 40 mg/ (Sodium Chloride) 10 mls @ 200 mls/hr IV Q24H [facility] Last Admin: 02/18/19 14:59 Dose: 200 mls/hr Ceftriaxone Sodium/Dextrose 1 (gm/ Premix) 50 mls @ 100 mls/hr IV Q24H [facility] Last Admin: 02/17/19 15:08 Dose: 100 mls/hr Metronidazole 500 mg/ Premix 100 mls @ 100 mls/hr IV QID [facility] Last Admin: 02/18/19 12:07 Dose: 100 mls/hr Dextrose/Water (Dextrose 5% In Water) 1,000 mls @ 100 mls/hr IV ASDIRECTED [facility] Last Admin: 02/18/19 14:54 Dose: 100 mls/hr Ondansetron HCl (Zofran) 4 mg IVPUSH Q4H PRN PRN Reason: Nausea Quetiapine Fumarate (Seroquel) 50 mg PO BID [facility] Last Admin: 02/18/19 10:12 Dose: 50 mg Sodium Chloride (Saline Flush) 10 ml FLUSH ASDIRECTED PRN PRN Reason: Keep Vein Open Last Admin: 02/13/19 11:06 Dose: 10 ml Sodium Chloride (Saline Flush) 2.5 ml FLUSH ASDIRECTED PRN PRN Reason: Keep Vein Open Last Admin: 02/13/19 11:06 Dose: 2.5 ml Discontinued Medications Heparin Sodium (Porcine) (Heparin Sodium) 5,000 units SUBCUT Q8H [facility] Last Admin: 02/13/19 18:55 Dose: Not Given Ceftriaxone Sodium/Dextrose 1 (gm/ Premix) 50 mls @ 100 mls/hr IV ONETIME ONE Stop: 02/13/19 12:10 Last Admin: 02/13/19 12:25 Dose: 100 mls/hr Sodium Chloride (Normal Saline) 1,000 mls @ 500 mls/hr IV STAT ONE Stop: 02/13/19 13:40 Last Admin: 02/13/19 12:25 Dose: 500 mls/hr Levofloxacin/Dextrose 750 mg/ (Premix) 150 mls @ 100 mls/hr IV ONETIME ONE Stop: 02/13/19 13:49 Last Admin: 02/13/19 13:14 Dose: 100 mls/hr Piperacillin Sod/Tazobactam (Sod 3.375 gm/ Sodium Chloride) 50 mls @ 100 mls/ hr IV ONETIME ONE Stop: 02/13/19 12:52 Last Admin: 02/13/19 14:52 Dose: 100 mls/hr Sodium Chloride (Normal Saline) 1,000 mls @ 999 mls/hr IV STAT ONE Stop: 02/13/19 13:35 Last Admin: 02/13/19 13:14 Dose: 999 mls/hr Piperacillin Sod/Tazobactam (Sod 3.375 gm/ Sodium Chloride) 50 mls @ 100 mls/ hr IV Q6H [facility] Sodium Chloride (Normal Saline) 1,000 mls @ 125 mls/hr IV ASDIRECTED [facility] Last Admin: 02/15/19 08:05 Dose: 125 mls/hr Piperacillin Sod/Tazobactam (Sod 3.375 gm/ Sodium Chloride) 50 mls @ 100 mls/ hr IV Q6H [facility] Last Admin: 02/16/19 09:47 Dose: 100 mls/hr Sodium Chloride (Normal Saline) 500 mls @ 999 mls/hr IV ONETIME ONE Stop: 02/13/19 19:09 Last Admin: 02/13/19 18:53 Dose: 999 mls/hr Lactated Ringer's (Ringers, Lactated) 500 mls @ 999 mls/hr IV ASDIRECTED [facility] Lactated Ringer's (Ringers, Lactated) 500 mls @ 999 mls/hr IV ONETIME ONE Stop: 02/14/19 01:38 Last Admin: 02/14/19 01:12 Dose: 999 mls/hr Potassium Chloride 20 meq/ (Premix) 50 mls @ 25 mls/hr IV ONETIME ONE Stop: 02/14/19 08:55 Last Admin: 02/14/19 08:01 Dose: 25 mls/hr Sodium Chloride (Normal Saline) 1,000 mls @ 999 mls/hr IV .Bolus ONE Stop: 02/14/19 11:21 Last Admin: 02/14/19 10:26 Dose: 999 mls/hr Potassium Chloride/Sodium Chloride (1/2 Ns With 20 Meq Kcl) 1,000 mls @ 75 mls/ hr IV ASDIRECTED [facility] Last Admin: 02/16/19 05:43 Dose: 75 mls/hr Dextrose/Water (Dextrose 5% In Water) 1,000 mls @ 100 mls/hr IV ASDIRECTED [facility] Last Admin: 02/16/19 08:20 Dose: 100 mls/hr Potassium Chloride 30 meq/ (Dextrose/Water) 1,015 mls @ 100 mls/hr IV ASDIRECTED [facility] Last Admin: 02/17/19 04:24 Dose: 100 mls/hr Ondansetron HCl (Zofran) 4 mg IVPUSH ONETIME ONE Stop: 02/13/19 10:33 Last Admin: 02/13/19 11:06 Dose: 4 mg
[2019-02-18 14:48] LABS: CHLORIDE,CL 114 mmol/L (98-107); SODIUM,NA 147 mmol/L (136-145)
[2019-02-18] MEDS: Pantoprazole 40 MG in Sodium Chloride 0.9% 10 ML IV SCH (14:59)
[2019-02-18] MEDS: cefTRIAXone 1 GM in Premix Bag 1 BAG IV SCH (15:03)
[2019-02-19] MEDS: Dextrose 5% in Water 1,000 ML IV SCH (03:15)
[2019-02-19 05:30] LABS: CHLORIDE,CL 109 mmol/L (98-107); SODIUM,NA 142 mmol/L (136-145)
[2019-02-19] MEDS: metroNIDAZOLE/Normal Saline 500 MG in Premix Bag 1 BAG IV SCH ×6 (06:22→23:18)
[2019-02-19] MEDS: Heparin Sodium 5,000 Units/ML Vial SUBCUT SCH ×3 (06:32→23:16)
[2019-02-19] MEDS ORDERED: Potassium Chloride 20 MEQ Tab.ER PO ONE (08:00)
[2019-02-19] MEDS: Citalopram 20 MG Tab PO SCH (08:30)
--- NOTE | 2019-02-19 11:17 | PCM.PN ---
<Bridget Armendariz M - Last Filed: 02/19/19 11:14> - General Info Date of Service: 02/19/19 Admission Dx/Problem (Free Text): Cholecystitis Subjective Update: Non verbal, no family at bedside. - Patient Data Vitals - Most Recent: Last Vital Signs Temp 97.4 F 02/19/19 07:25 Pulse 103 H 02/19/19 07:25 Resp 24 H 02/19/19 07:25 BP 114/79 02/19/19 07:25 Pulse Ox 94 L 02/19/19 07:25 Weight - Most Recent: 63 kg I&O - Last 24 Hours: Intake & Output 02/18/19 02/19/19 02/19/19 22:59 06:59 14:59 Intake Total 1270 1159 Balance 1270 1159 Lab Results Last 24 Hours: Laboratory Results - last 24 hr 02/18/19 02/19/19 02/19/19 Range/Units 14:12 04:53 04:53 WBC 17.22 H (4.0-11.0) K/uL RBC 4.14 L (4.30-5.90) M/uL Hgb 12.7 (12.0-16.0) g/dL Hct 38.8 (36.0-46.0) % MCV 93.7 (80.0-98.0) fL MCH 30.7 (27.0-32.0) pg MCHC 32.7 (31.0-37.0) g/dL RDW Std Deviation 52.3 (28.0-62.0) fl RDW Coeff of Humera 15 (11.0-15.0) % Plt Count 334 (150-400) K/uL MPV 11.70 (7.40-12.00) fL Add Manual Diff YES Neutrophils % (Manual) 62 (48.0-80.0) % Band Neutrophils % 19 % Lymphocytes % (Manual) 9 L (16.0-40.0) % Atypical Lymphs % Not Reportable Monocytes % (Manual) 7 (0.0-15.0) % Eosinophils % (Manual) 1 (0.0-7.0) % Metamyelocytes % 1 % Myelocytes % 1 % Nucleated RBC % 0.0 /100WBC Absolute Seg Neuts 10.7 H (1.4-5.7) Band Neutrophils # 3.3 Lymphocytes # (Manual) 1.5 (0.6-2.4) Monocytes # (Manual) 1.2 H (0.0-0.8) Eosinophils # (Manual) 0.2 (0.0-0.7) Absolute Metamyelocyte 0.2 Absolute Myelocytes 0.2 Nucleated RBCs # 0 K/uL Sodium 147 H 142 (136-145) mmol/L Potassium 3.4 L 2.7 L (3.5-5.1) mmol/L Chloride 114 H 109 H (98-107) mmol/L Carbon Dioxide 22.4 25.5 (21.0-32.0) mmol/L BUN 9 7 (7.0-18.0) mg/dL Creatinine 0.5 L 0.6 (0.6-1.0) mg/dL Est Cr Clr Drug Dosing 112.54 93.78 mL/min Estimated GFR (MDRD) > 60.0 > 60.0 ml/min Glucose 238 H 236 H (74-106) mg/dL Calcium 7.2 L 7.4 L (8.5-10.1) mg/dL Magnesium (1.8-2.4) mg/dL 02/19/19 Range/Units 04:53 WBC (4.0-11.0) K/uL RBC (4.30-5.90) M/uL Hgb (12.0-16.0) g/dL Hct (36.0-46.0) % MCV (80.0-98.0) fL MCH (27.0-32.0) pg MCHC (31.0-37.0) g/dL RDW Std Deviation (28.0-62.0) fl RDW Coeff of Humera (11.0-15.0) % Plt Count (150-400) K/uL MPV (7.40-12.00) fL Add Manual Diff Neutrophils % (Manual) (48.0-80.0) % Band Neutrophils % % Lymphocytes % (Manual) (16.0-40.0) % Atypical Lymphs % Monocytes % (Manual) (0.0-15.0) % Eosinophils % (Manual) (0.0-7.0) % Metamyelocytes % % Myelocytes % % Nucleated RBC % /100WBC Absolute Seg Neuts (1.4-5.7) Band Neutrophils # Lymphocytes # (Manual) (0.6-2.4) Monocytes # (Manual) (0.0-0.8) Eosinophils # (Manual) (0.0-0.7) Absolute Metamyelocyte Absolute Myelocytes Nucleated RBCs # K/uL Sodium (136-145) mmol/L Potassium (3.5-5.1) mmol/L Chloride (98-107) mmol/L Carbon Dioxide (21.0-32.0) mmol/L BUN (7.0-18.0) mg/dL Creatinine (0.6-1.0) mg/dL Est Cr Clr Drug Dosing mL/min Estimated GFR (MDRD) ml/min Glucose (74-106) mg/dL Calcium (8.5-10.1) mg/dL Magnesium 1.8 (1.8-2.4) mg/dL Nino Results Last 24 Hours: Microbiology 02/13/19 11:40 Aerobic Blood Culture - Final Blood - Venous - Lab Draw NO GROWTH AFTER 5 DAYS Anaerobic Blood Culture - Final NO GROWTH AFTER 5 DAYS 02/13/19 11:25 Aerobic Blood Culture - Final Blood - Venous NO GROWTH AFTER 5 DAYS Anaerobic Blood Culture - Final NO GROWTH AFTER 5 DAYS Med Orders - Current: Current Medications Citalopram Hydrobromide (Celexa) 40 mg PO DAILY [facility] Last Admin: 02/19/19 08:30 Dose: 40 mg Diazepam (Valium.) 5 mg PO Q8H PRN PRN Reason: Agitation Heparin Sodium (Porcine) (Heparin Sodium) 5,000 units SUBCUT Q8H [facility] Last Admin: 02/19/19 06:32 Dose: 5,000 units Pantoprazole Sodium 40 mg/ (Sodium Chloride) 10 mls @ 200 mls/hr IV Q24H [facility] Last Admin: 02/18/19 14:59 Dose: 200 mls/hr Ceftriaxone Sodium/Dextrose 1 (gm/ Premix) 50 mls @ 100 mls/hr IV Q24H [facility] Last Admin: 02/18/19 15:03 Dose: 100 mls/hr Metronidazole 500 mg/ Premix 100 mls @ 100 mls/hr IV QID [facility] Last Admin: 02/19/19 06:22 Dose: 100 mls/hr Potassium Chloride/Sodium Chloride (1/2 Ns With 20 Meq Kcl) 1,000 mls @ 100 mls /hr IV ASDIRECTED [facility] Ondansetron HCl (Zofran) 4 mg IVPUSH Q4H PRN PRN Reason: Nausea Quetiapine Fumarate (Seroquel) 50 mg PO BID [facility] Last Admin: 02/19/19 08:30 Dose: 50 mg Sodium Chloride (Saline Flush) 10 ml FLUSH ASDIRECTED PRN PRN Reason: Keep Vein Open Last Admin: 02/13/19 11:06 Dose: 10 ml Sodium Chloride (Saline Flush) 2.5 ml FLUSH ASDIRECTED PRN PRN Reason: Keep Vein Open Last Admin: 02/13/19 11:06 Dose: 2.5 ml Discontinued Medications Heparin Sodium (Porcine) (Heparin Sodium) 5,000 units SUBCUT Q8H [facility] Last Admin: 02/13/19 18:55 Dose: Not Given Ceftriaxone Sodium/Dextrose 1 (gm/ Premix) 50 mls @ 100 mls/hr IV ONETIME ONE Stop: 02/13/19 12:10 Last Admin: 02/13/19 12:25 Dose: 100 mls/hr Sodium Chloride (Normal Saline) 1,000 mls @ 500 mls/hr IV STAT ONE Stop: 02/13/19 13:40 Last Admin: 02/13/19 12:25 Dose: 500 mls/hr Levofloxacin/Dextrose 750 mg/ (Premix) 150 mls @ 100 mls/hr IV ONETIME ONE Stop: 02/13/19 13:49 Last Admin: 02/13/19 13:14 Dose: 100 mls/hr Piperacillin Sod/Tazobactam (Sod 3.375 gm/ Sodium Chloride) 50 mls @ 100 mls/ hr IV ONETIME ONE Stop: 02/13/19 12:52 Last Admin: 02/13/19 14:52 Dose: 100 mls/hr Sodium Chloride (Normal Saline) 1,000 mls @ 999 mls/hr IV STAT ONE Stop: 02/13/19 13:35 Last Admin: 02/13/19 13:14 Dose: 999 mls/hr Piperacillin Sod/Tazobactam (Sod 3.375 gm/ Sodium Chloride) 50 mls @ 100 mls/ hr IV Q6H [facility] Sodium Chloride (Normal Saline) 1,000 mls @ 125 mls/hr IV ASDIRECTED [facility] Last Admin: 02/15/19 08:05 Dose: 125 mls/hr Piperacillin Sod/Tazobactam (Sod 3.375 gm/ Sodium Chloride) 50 mls @ 100 mls/ hr IV Q6H [facility] Last Admin: 02/16/19 09:47 Dose: 100 mls/hr Sodium Chloride (Normal Saline) 500 mls @ 999 mls/hr IV ONETIME ONE Stop: 02/13/19 19:09 Last Admin: 02/13/19 18:53 Dose: 999 mls/hr Lactated Ringer's (Ringers, Lactated) 500 mls @ 999 mls/hr IV ASDIRECTED [facility] Lactated Ringer's (Ringers, Lactated) 500 mls @ 999 mls/hr IV ONETIME ONE Stop: 02/14/19 01:38 Last Admin: 02/14/19 01:12 Dose: 999 mls/hr Potassium Chloride 20 meq/ (Premix) 50 mls @ 25 mls/hr IV ONETIME ONE Stop: 02/14/19 08:55 Last Admin: 02/14/19 08:01 Dose: 25 mls/hr Sodium Chloride (Normal Saline) 1,000 mls @ 999 mls/hr IV .Bolus ONE Stop: 02/14/19 11:21 Last Admin: 02/14/19 10:26 Dose: 999 mls/hr Potassium Chloride/Sodium Chloride (1/2 Ns With 20 Meq Kcl) 1,000 mls @ 75 mls/ hr IV ASDIRECTED [facility] Last Admin: 02/16/19 05:43 Dose: 75 mls/hr Dextrose/Water (Dextrose 5% In Water) 1,000 mls @ 100 mls/hr IV ASDIRECTED [facility] Last Admin: 02/16/19 08:20 Dose: 100 mls/hr Potassium Chloride 30 meq/ (Dextrose/Water) 1,015 mls @ 100 mls/hr IV ASDIRECTED [facility] Last Admin: 02/17/19 04:24 Dose: 100 mls/hr Dextrose/Water (Dextrose 5% In Water) 1,000 mls @ 100 mls/hr IV ASDIRECTED [facility] Last Admin: 02/19/19 03:15 Dose: 100 mls/hr Ondansetron HCl (Zofran) 4 mg IVPUSH ONETIME ONE Stop: 02/13/19 10:33 Last Admin: 02/13/19 11:06 Dose: 4 mg Potassium Chloride (Klor-Con M20) 40 meq PO ONETIME ONE Stop: 02/19/19 08:01 Last Admin: 02/19/19 08:31 Dose: 40 meq - Exam General: No Acute Distress, Other (resting.) Lungs: Clear to Auscultation, Normal Respiratory Effort Cardiovascular: Regular Rate, Regular Rhythm GI/Abdominal Exam: Normal Bowel Sounds, Soft, Non-Tender, No Distention Extremities: Normal Inspection, Normal Range of Motion, Non-Tender, No Pedal Edema Neurological: No New Focal Deficit Psy/Mental Status: Normal Affect - Problem List & Annotations (1) UTI (urinary tract infection) SNOMED Code(s): 41922257 Code(s): N39.0 - URINARY TRACT INFECTION, SITE NOT SPECIFIED Status: Acute Current Visit: Yes (2) SBO (small bowel obstruction) SNOMED Code(s): 640097325 Code(s): K56.609 - UNSP INTESTNL OBST, UNSP TO PARTIAL VERSUS COMPLETE OBST Status: Acute Current Visit: Yes (3) Cholecystitis SNOMED Code(s): 41587912 Code(s): K81.9 - CHOLECYSTITIS, UNSPECIFIED Status: Acute Current Visit: Yes (4) Sepsis SNOMED Code(s): 76705333 Code(s): A41.9 - SEPSIS, UNSPECIFIED ORGANISM Status: Resolved Current Visit: Yes Qualifiers: Sepsis type: sepsis due to unspecified organism Qualified Code(s): A41.9 - Sepsis, unspecified organism (5) Hypernatremia SNOMED Code(s): 354716993 Code(s): E87.0 - HYPEROSMOLALITY AND HYPERNATREMIA Status: Acute Current Visit: Yes - Problem List Review Problem List Initiated/Reviewed/Updated: Yes - My Orders Last 24 Hours: My Active Orders 02/19/19 08:15 Sodium Chloride 0.45% with KCl [1/2 NS with 20 mEq KCl] 1,000 ml IV ASDIRECTED 02/20/19 05:11 BMP [BASIC METABOLIC PANEL,BMP] [CHEM] AM CBC WITH AUTO DIFF [HEME] AM 02/21/19 05:11 BMP [BASIC METABOLIC PANEL,BMP] [CHEM] AM CBC WITH AUTO DIFF [HEME] AM - Plan Plan:: 68 yo female with sepsis, UTI, cholecystitis, and partial small bowel obstruction. 1. Cholecystitis: Leukocytosis elevated slightly. continue Rocephin and Flagyl 2. Klebsiella UTI: Continue Rocephin. 3. pSBO: BM yesterday. Diet advanced to regular diet. No vomiting 4. Hypernatremia: Na 142 today. Stop D 5, start 1/2 NS with 20 KCL. DNR/DNI: family does not want transfer. Continue palliative care. Bambi is not eating or drinking much and definitely not enough to sustain her off IVFs. Will speak with family regarding goals of treatment and consider comfort measures and back to [facility] on Hospice care. VTE prophylaxis: Heparin Dispo: 1-2 days <Kendrick Eldridge - Last Filed: 02/19/19 13:11> - General Info Admission Dx/Problem (Free Text): I have seen and examined to patient independently of Bridget Armendariz CNP. I have discussed the case for care of this patient with her. I have reviewed and approve of the plan of care as outlined by IGNACIO. Please see orders. Pending placement for this patient. Consider hospice for her. - Patient Data Vitals - Most Recent: Last Vital Signs Temp 36.3 C 02/19/19 07:25 Pulse 103 H 02/19/19 07:25 Resp 24 H 02/19/19 07:25 BP 114/79 02/19/19 07:25 Pulse Ox 94 L 02/19/19 07:25 I&O - Last 24 Hours: Intake & Output 02/18/19 02/19/19 02/19/19 22:59 06:59 14:59 Intake Total 1270 1159 Balance 1270 1159 Lab Results Last 24 Hours: Laboratory Results - last 24 hr 02/18/19 02/19/19 02/19/19 Range/Units 14:12 04:53 04:53 WBC 17.22 H (4.0-11.0) K/uL RBC 4.14 L (4.30-5.90) M/uL Hgb 12.7 (12.0-16.0) g/dL Hct 38.8 (36.0-46.0) % MCV 93.7 (80.0-98.0) fL MCH 30.7 (27.0-32.0) pg MCHC 32.7 (31.0-37.0) g/dL RDW Std Deviation 52.3 (28.0-62.0) fl RDW Coeff of Humera 15 (11.0-15.0) % Plt Count 334 (150-400) K/uL MPV 11.70 (7.40-12.00) fL Add Manual Diff YES Neutrophils % (Manual) 62 (48.0-80.0) % Band Neutrophils % 19 % Lymphocytes % (Manual) 9 L (16.0-40.0) % Atypical Lymphs % Not Reportable Monocytes % (Manual) 7 (0.0-15.0) % Eosinophils % (Manual) 1 (0.0-7.0) % Metamyelocytes % 1 % Myelocytes % 1 % Nucleated RBC % 0.0 /100WBC Absolute Seg Neuts 10.7 H (1.4-5.7) Band Neutrophils # 3.3 Lymphocytes # (Manual) 1.5 (0.6-2.4) Monocytes # (Manual) 1.2 H (0.0-0.8) Eosinophils # (Manual) 0.2 (0.0-0.7) Absolute Metamyelocyte 0.2 Absolute Myelocytes 0.2 Nucleated RBCs # 0 K/uL Sodium 147 H 142 (136-145) mmol/L Potassium 3.4 L 2.7 L (3.5-5.1) mmol/L Chloride 114 H 109 H (98-107) mmol/L Carbon Dioxide 22.4 25.5 (21.0-32.0) mmol/L BUN 9 7 (7.0-18.0) mg/dL Creatinine 0.5 L 0.6 (0.6-1.0) mg/dL Est Cr Clr Drug Dosing 112.54 93.78 mL/min Estimated GFR (MDRD) > 60.0 > 60.0 ml/min Glucose 238 H 236 H (74-106) mg/dL Calcium 7.2 L 7.4 L (8.5-10.1) mg/dL Magnesium (1.8-2.4) mg/dL 02/19/19 Range/Units 04:53 WBC (4.0-11.0) K/uL RBC (4.30-5.90) M/uL Hgb (12.0-16.0) g/dL Hct (36.0-46.0) % MCV (80.0-98.0) fL MCH (27.0-32.0) pg MCHC (31.0-37.0) g/dL RDW Std Deviation (28.0-62.0) fl RDW Coeff of Humera (11.0-15.0) % Plt Count (150-400) K/uL MPV (7.40-12.00) fL Add Manual Diff Neutrophils % (Manual) (48.0-80.0) % Band Neutrophils % % Lymphocytes % (Manual) (16.0-40.0) % Atypical Lymphs % Monocytes % (Manual) (0.0-15.0) % Eosinophils % (Manual) (0.0-7.0) % Metamyelocytes % % Myelocytes % % Nucleated RBC % /100WBC Absolute Seg Neuts (1.4-5.7) Band Neutrophils # Lymphocytes # (Manual) (0.6-2.4) Monocytes # (Manual) (0.0-0.8) Eosinophils # (Manual) (0.0-0.7) Absolute Metamyelocyte Absolute Myelocytes Nucleated RBCs # K/uL Sodium (136-145) mmol/L Potassium (3.5-5.1) mmol/L Chloride (98-107) mmol/L Carbon Dioxide (21.0-32.0) mmol/L BUN (7.0-18.0) mg/dL Creatinine (0.6-1.0) mg/dL Est Cr Clr Drug Dosing mL/min Estimated GFR (MDRD) ml/min Glucose (74-106) mg/dL Calcium (8.5-10.1) mg/dL Magnesium 1.8 (1.8-2.4) mg/dL Nino Results Last 24 Hours: Microbiology 02/13/19 11:40 Aerobic Blood Culture - Final Blood - Venous - Lab Draw NO GROWTH AFTER 5 DAYS Anaerobic Blood Culture - Final NO GROWTH AFTER 5 DAYS 02/13/19 11:25 Aerobic Blood Culture - Final Blood - Venous NO GROWTH AFTER 5 DAYS Anaerobic Blood Culture - Final NO GROWTH AFTER 5 DAYS Med Orders - Current: Current Medications Citalopram Hydrobromide (Celexa) 40 mg PO DAILY [facility] Last Admin: 02/19/19 08:30 Dose: 40 mg Diazepam (Valium.) 5 mg PO Q8H PRN PRN Reason: Agitation Heparin Sodium (Porcine) (Heparin Sodium) 5,000 units SUBCUT Q8H [facility] Last Admin: 02/19/19 06:32 Dose: 5,000 units Pantoprazole Sodium 40 mg/ (Sodium Chloride) 10 mls @ 200 mls/hr IV Q24H [facility] Last Admin: 02/18/19 14:59 Dose: 200 mls/hr Ceftriaxone Sodium/Dextrose 1 (gm/ Premix) 50 mls @ 100 mls/hr IV Q24H [facility] Last Admin: 02/18/19 15:03 Dose: 100 mls/hr Metronidazole 500 mg/ Premix 100 mls @ 100 mls/hr IV QID [facility] Last Admin: 02/19/19 12:25 Dose: 100 mls/hr Potassium Chloride/Sodium Chloride (1/2 Ns With 20 Meq Kcl) 1,000 mls @ 100 mls /hr IV ASDIRECTED [facility] Ondansetron HCl (Zofran) 4 mg IVPUSH Q4H PRN PRN Reason: Nausea Quetiapine Fumarate (Seroquel) 50 mg PO BID [facility] Last Admin: 02/19/19 08:30 Dose: 50 mg Sodium Chloride (Saline Flush) 10 ml FLUSH ASDIRECTED PRN PRN Reason: Keep Vein Open Last Admin: 02/13/19 11:06 Dose: 10 ml Sodium Chloride (Saline Flush) 2.5 ml FLUSH ASDIRECTED PRN PRN Reason: Keep Vein Open Last Admin: 02/13/19 11:06 Dose: 2.5 ml Discontinued Medications Heparin Sodium (Porcine) (Heparin Sodium) 5,000 units SUBCUT Q8H [facility] Last Admin: 02/13/19 18:55 Dose: Not Given Ceftriaxone Sodium/Dextrose 1 (gm/ Premix) 50 mls @ 100 mls/hr IV ONETIME ONE Stop: 02/13/19 12:10 Last Admin: 02/13/19 12:25 Dose: 100 mls/hr Sodium Chloride (Normal Saline) 1,000 mls @ 500 mls/hr IV STAT ONE Stop: 02/13/19 13:40 Last Admin: 02/13/19 12:25 Dose: 500 mls/hr Levofloxacin/Dextrose 750 mg/ (Premix) 150 mls @ 100 mls/hr IV ONETIME ONE Stop: 02/13/19 13:49 Last Admin: 02/13/19 13:14 Dose: 100 mls/hr Piperacillin Sod/Tazobactam (Sod 3.375 gm/ Sodium Chloride) 50 mls @ 100 mls/ hr IV ONETIME ONE Stop: 02/13/19 12:52 Last Admin: 02/13/19 14:52 Dose: 100 mls/hr Sodium Chloride (Normal Saline) 1,000 mls @ 999 mls/hr IV STAT ONE Stop: 02/13/19 13:35 Last Admin: 02/13/19 13:14 Dose: 999 mls/hr Piperacillin Sod/Tazobactam (Sod 3.375 gm/ Sodium Chloride) 50 mls @ 100 mls/ hr IV Q6H [facility] Sodium Chloride (Normal Saline) 1,000 mls @ 125 mls/hr IV ASDIRECTED [facility] Last Admin: 02/15/19 08:05 Dose: 125 mls/hr Piperacillin Sod/Tazobactam (Sod 3.375 gm/ Sodium Chloride) 50 mls @ 100 mls/ hr IV Q6H [facility] Last Admin: 02/16/19 09:47 Dose: 100 mls/hr Sodium Chloride (Normal Saline) 500 mls @ 999 mls/hr IV ONETIME ONE Stop: 02/13/19 19:09 Last Admin: 02/13/19 18:53 Dose: 999 mls/hr Lactated Ringer's (Ringers, Lactated) 500 mls @ 999 mls/hr IV ASDIRECTED [facility] Lactated Ringer's (Ringers, Lactated) 500 mls @ 999 mls/hr IV ONETIME ONE Stop: 02/14/19 01:38 Last Admin: 02/14/19 01:12 Dose: 999 mls/hr Potassium Chloride 20 meq/ (Premix) 50 mls @ 25 mls/hr IV ONETIME ONE Stop: 02/14/19 08:55 Last Admin: 02/14/19 08:01 Dose: 25 mls/hr Sodium Chloride (Normal Saline) 1,000 mls @ 999 mls/hr IV .Bolus ONE Stop: 02/14/19 11:21 Last Admin: 02/14/19 10:26 Dose: 999 mls/hr Potassium Chloride/Sodium Chloride (1/2 Ns With 20 Meq Kcl) 1,000 mls @ 75 mls/ hr IV ASDIRECTED [facility] Last Admin: 02/16/19 05:43 Dose: 75 mls/hr Dextrose/Water (Dextrose 5% In Water) 1,000 mls @ 100 mls/hr IV ASDIRECTED [facility] Last Admin: 02/16/19 08:20 Dose: 100 mls/hr Potassium Chloride 30 meq/ (Dextrose/Water) 1,015 mls @ 100 mls/hr IV ASDIRECTED [facility] Last Admin: 02/17/19 04:24 Dose: 100 mls/hr Dextrose/Water (Dextrose 5% In Water) 1,000 mls @ 100 mls/hr IV ASDIRECTED [facility] Last Admin: 02/19/19 03:15 Dose: 100 mls/hr Ondansetron HCl (Zofran) 4 mg IVPUSH ONETIME ONE Stop: 02/13/19 10:33 Last Admin: 02/13/19 11:06 Dose: 4 mg Potassium Chloride (Klor-Con M20) 40 meq PO ONETIME ONE Stop: 02/19/19 08:01 Last Admin: 02/19/19 08:31 Dose: 40 meq
[2019-02-19] MEDS: Sodium Chloride 0.45% with KCl 1,000 ML IV SCH ×2 (14:04→23:19)
--- NOTE | 2019-02-19 14:40 | PCM.SN ---
- Free Text/Narrative Note: Spoke with Cedric caldera, this afternoon regarding goals of treatment and poor prognosis. I recommended transitioning to comfort measures/ Hospice care as she is note eating or drinking and needing IVFs to keep her hydration status. he agreed, but would like to speak with family members to insure they are all on the same page. He will contact me tomorrow regarding decision.
[2019-02-19] MEDS: Pantoprazole 40 MG in Sodium Chloride 0.9% 10 ML IV SCH (15:16)
[2019-02-19] MEDS: cefTRIAXone 1 GM in Premix Bag 1 BAG IV SCH (15:20)
[2019-02-20 06:12] LABS: CHLORIDE,CL 107 mmol/L (98-107); SODIUM,NA 139 mmol/L (136-145)
[2019-02-20] MEDS: Heparin Sodium 5,000 Units/ML Vial SUBCUT SCH (06:51)
[2019-02-20] MEDS: metroNIDAZOLE/Normal Saline 500 MG in Premix Bag 1 BAG IV SCH (06:53)
[2019-02-20 09:13] VITALS: BP 147/94
[2019-02-20] MEDS: Citalopram 20 MG Tab PO SCH (09:28)
[2019-02-20] MEDS: Sodium Chloride 0.45% with KCl 1,000 ML IV SCH (10:29)
--- NOTE | 2019-02-20 10:59 | PCM.DCSUM1 ---
<Bridget Armendariz M - Last Filed: 02/20/19 11:44> Discharge Summary - Hospital Course Brief History: 68 yo female with pmh of dementia who presents from [place] with increasing lethargy, hypoxia and facial droop. IN the ED she was noted to have a WBC of 28,460. UA was nitrate positive. CT head was negative for acute pathology. Diagnosis: Stroke: No - Discharge Data Discharge Date: 02/20/19 Discharge Disposition: DC/Tfer to SNF 03 Condition: Stable - Discharge Diagnosis/Problem(s) (1) Comfort measures only status SNOMED Code(s): 16592639796950 ICD Code: Z51.5 - ENCOUNTER FOR PALLIATIVE CARE Status: Acute Current Visit: Yes (2) UTI (urinary tract infection) SNOMED Code(s): 03275596 ICD Code: N39.0 - URINARY TRACT INFECTION, SITE NOT SPECIFIED Status: Acute Current Visit: Yes (3) SBO (small bowel obstruction) SNOMED Code(s): 063607999 ICD Code: K56.609 - UNSP INTESTNL OBST, UNSP TO PARTIAL VERSUS COMPLETE OBST Status: Acute Current Visit: Yes (4) Cholecystitis SNOMED Code(s): 61098688 ICD Code: K81.9 - CHOLECYSTITIS, UNSPECIFIED Status: Acute Current Visit : Yes (5) Sepsis SNOMED Code(s): 25364922 ICD Code: A41.9 - SEPSIS, UNSPECIFIED ORGANISM Status: Resolved Current Visit: Yes Qualifiers: Sepsis type: sepsis due to unspecified organism Qualified Code(s): A41.9 - Sepsis, unspecified organism (6) Hypernatremia SNOMED Code(s): 196140893 ICD Code: E87.0 - HYPEROSMOLALITY AND HYPERNATREMIA Status: Acute Current Visit: Yes - Patient Instructions Diet: Usual Diet as Tolerated Activity: As Tolerated Showering/Bathing: May Shower Notify Provider of: Fever, Increased Pain, Swelling and Redness, Drainage, Nausea and/or Vomiting Other/Special Instructions: Comfort Measures Only - Discharge Plan *PRESCRIPTION DRUG MONITORING PROGRAM REVIEWED*: Not Applicable *COPY OF PRESCRIPTION DRUG MONITORING REPORT IN PATIENT SHY: Not Applicable Prescriptions/Med Rec: LORazepam [Ativan] 1 mg PO Q4H PRN #1 bottle PRN Reason: Agitation/anxiety/restlessness Morphine [Morphine 20 MG/ML Soln] 5 mg PO Q1H PRN #1 bottle PRN Reason: pain/SOB/agitation Scopolamine [Transderm-Scop] 1 each TD Q72H PRN #10 patch.td.3 PRN Reason: secretions/nausea Home Medications: Home Meds Bisacodyl [Dulcolax] 10 mg RECTAL DAILY PRN 02/15/19 [History] Menthol/Zinc Oxide [Gold Herbert Medicated Body Powdr] 1 applic TOP . NEEDED TO GROIN PRN 02/16/19 [History] LORazepam [Ativan] 1 mg PO Q4H PRN #1 bottle 02/20/19 [Rx] Morphine [Morphine 20 MG/ML Soln] 5 mg PO Q1H PRN #1 bottle 02/20/19 [Rx] Scopolamine [Transderm-Scop] 1 each TD Q72H PRN #10 patch.td.3 02/20/19 [Rx] Oxygen Therapy Mode: Room Air Referrals: Ruperto Mart MD [Physician] - 02/23/19 (Will be seen on next [place] rounds.) - Discharge Summary/Plan Comment DC Time >30 min.: Yes (discussion with family, Dr Mart >45 minutes) Discharge Summary/Plan Comment: Admitting Diagnoses: Sepsis UTI Cholecystitis PSBO Discharge Diagnoses: Comfort measures UTI Cholecystitis Other PMH Dementia Nonverbal Non ambulatory Bambi was admitted and treated for sepsis secondary to cholecystitis and UTI as well as PSBO. Family initially wanted surgical consult. Dr Combs was consulted, he recommended transfer for surgical intervention or percutaneous drainage. Family declined this and wanted medical management only. She was treated with IVFs and Zosyn. She initially improved well. Leukocytosis improved. She started eating some liquid diet and tolerated this well. Over the next few days she developed hypernatremia and leukocytosis continued to increase. She was then started on D5W. Zosyn was then also discontinued and she was transitioned to Rocephin and Flagyl. Leukocytosis continued to increase. Bambi was not taking much in orally and refusing to eat or drink any fluids. I spoke with Cedric Romero, guardian was contacted yesterday regarding treatment goals. He contacted family, I myself spoke with a sister and updated her on poor prognosis and the recommendation for comfort measures. Today Cedric and family made the decision to transition her back to [facility] on comfort measures. I spoke with Dr Mart, PCP at [facility] who is aware and in agreement for this transition. I will discharge her back to [place] today with Morphine SL, Ativan SL and Scopolamine patch PRN. She will continue on 2 L NC for comfort, but this can also be removed as family wishes. Diet as tolerated and for pleasure only. - General Info Date of Service: 02/20/19 Admission Dx/Problem (Free Text: Cholecystitis Subjective Update: Non verbal. Awake, no obvious signs of distress or pain. Functional Status: Denies: Tolerating Diet, Ambulating - Patient Data Vitals - Most Recent: Last Vital Signs Temp 96.8 F 02/20/19 08:00 Pulse 117 H 02/20/19 08:00 Resp 14 02/20/19 08:00 BP 147/94 H 02/20/19 08:00 Pulse Ox 94 L 02/20/19 08:00 Weight - Most Recent: 65 kg I&O - Last 24 hours: Intake & Output 02/19/19 02/20/19 02/20/19 22:59 06:59 14:59 Intake Total 120 2620 Balance 120 2620 Lab Results - Last 24 hrs: Laboratory Results - last 24 hr 02/19/19 02/20/19 02/20/19 Range/Units 15:32 05:24 05:24 WBC 18.89 H (4.0-11.0) K/uL RBC 4.23 L (4.30-5.90) M/uL Hgb 13.2 (12.0-16.0) g/dL Hct 40.4 (36.0-46.0) % MCV 95.5 (80.0-98.0) fL MCH 31.2 (27.0-32.0) pg MCHC 32.7 (31.0-37.0) g/dL RDW Std Deviation 53.1 (28.0-62.0) fl RDW Coeff of Humera 15 (11.0-15.0) % Plt Count 426 H (150-400) K/uL MPV 11.60 (7.40-12.00) fL Add Manual Diff YES Neutrophils % (Manual) 59 (48.0-80.0) % Band Neutrophils % 17 % Lymphocytes % (Manual) 13 L (16.0-40.0) % Monocytes % (Manual) 10 (0.0-15.0) % Myelocytes % 1 % Nucleated RBC % 0.0 /100WBC Absolute Seg Neuts 11.1 H (1.4-5.7) Band Neutrophils # 3.2 Lymphocytes # (Manual) 2.5 H (0.6-2.4) Monocytes # (Manual) 1.9 H (0.0-0.8) Absolute Myelocytes 0.2 Nucleated RBCs # 0 K/uL Sodium 139 (136-145) mmol/L Potassium 3.5 (3.5-5.1) mmol/L Chloride 107 (98-107) mmol/L Carbon Dioxide 25.2 (21.0-32.0) mmol/L BUN 6 L (7.0-18.0) mg/dL Creatinine 0.6 (0.6-1.0) mg/dL Est Cr Clr Drug Dosing 92.08 mL/min Estimated GFR (MDRD) > 60.0 ml/min Glucose 160 H (74-106) mg/dL POC Glucose 164 H (60-110) mg/dL Calcium 7.6 L (8.5-10.1) mg/dL Med Orders - Current: Current Medications Citalopram Hydrobromide (Celexa) 40 mg PO DAILY [facility] Last Admin: 02/20/19 09:28 Dose: 40 mg Diazepam (Valium.) 5 mg PO Q8H PRN PRN Reason: Agitation Heparin Sodium (Porcine) (Heparin Sodium) 5,000 units SUBCUT Q8H [facility] Last Admin: 02/20/19 06:51 Dose: 5,000 units Pantoprazole Sodium 40 mg/ (Sodium Chloride) 10 mls @ 200 mls/hr IV Q24H [facility] Last Admin: 02/19/19 15:16 Dose: 200 mls/hr Ceftriaxone Sodium/Dextrose 1 (gm/ Premix) 50 mls @ 100 mls/hr IV Q24H [facility] Last Admin: 02/19/19 15:20 Dose: 100 mls/hr Metronidazole 500 mg/ Premix 100 mls @ 100 mls/hr IV QID [facility] Last Admin: 02/20/19 06:53 Dose: 100 mls/hr Potassium Chloride/Sodium Chloride (1/2 Ns With 20 Meq Kcl) 1,000 mls @ 100 mls /hr IV ASDIRECTED [facility] Last Admin: 02/20/19 10:29 Dose: 100 mls/hr Ondansetron HCl (Zofran) 4 mg IVPUSH Q4H PRN PRN Reason: Nausea Quetiapine Fumarate (Seroquel) 50 mg PO BID [facility] Last Admin: 02/20/19 09:28 Dose: 50 mg Sodium Chloride (Saline Flush) 10 ml FLUSH ASDIRECTED PRN PRN Reason: Keep Vein Open Last Admin: 02/13/19 11:06 Dose: 10 ml Sodium Chloride (Saline Flush) 2.5 ml FLUSH ASDIRECTED PRN PRN Reason: Keep Vein Open Last Admin: 02/13/19 11:06 Dose: 2.5 ml Discontinued Medications Heparin Sodium (Porcine) (Heparin Sodium) 5,000 units SUBCUT Q8H [facility] Last Admin: 02/13/19 18:55 Dose: Not Given Ceftriaxone Sodium/Dextrose 1 (gm/ Premix) 50 mls @ 100 mls/hr IV ONETIME ONE Stop: 02/13/19 12:10 Last Admin: 02/13/19 12:25 Dose: 100 mls/hr Sodium Chloride (Normal Saline) 1,000 mls @ 500 mls/hr IV STAT ONE Stop: 02/13/19 13:40 Last Admin: 02/13/19 12:25 Dose: 500 mls/hr Levofloxacin/Dextrose 750 mg/ (Premix) 150 mls @ 100 mls/hr IV ONETIME ONE Stop: 02/13/19 13:49 Last Admin: 02/13/19 13:14 Dose: 100 mls/hr Piperacillin Sod/Tazobactam (Sod 3.375 gm/ Sodium Chloride) 50 mls @ 100 mls/ hr IV ONETIME ONE Stop: 02/13/19 12:52 Last Admin: 02/13/19 14:52 Dose: 100 mls/hr Sodium Chloride (Normal Saline) 1,000 mls @ 999 mls/hr IV STAT ONE Stop: 02/13/19 13:35 Last Admin: 02/13/19 13:14 Dose: 999 mls/hr Piperacillin Sod/Tazobactam (Sod 3.375 gm/ Sodium Chloride) 50 mls @ 100 mls/ hr IV Q6H [facility] Sodium Chloride (Normal Saline) 1,000 mls @ 125 mls/hr IV ASDIRECTED [facility] Last Admin: 02/15/19 08:05 Dose: 125 mls/hr Piperacillin Sod/Tazobactam (Sod 3.375 gm/ Sodium Chloride) 50 mls @ 100 mls/ hr IV Q6H [facility] Last Admin: 02/16/19 09:47 Dose: 100 mls/hr Sodium Chloride (Normal Saline) 500 mls @ 999 mls/hr IV ONETIME ONE Stop: 02/13/19 19:09 Last Admin: 02/13/19 18:53 Dose: 999 mls/hr Lactated Ringer's (Ringers, Lactated) 500 mls @ 999 mls/hr IV ASDIRECTED [facility] Lactated Ringer's (Ringers, Lactated) 500 mls @ 999 mls/hr IV ONETIME ONE Stop: 02/14/19 01:38 Last Admin: 02/14/19 01:12 Dose: 999 mls/hr Potassium Chloride 20 meq/ (Premix) 50 mls @ 25 mls/hr IV ONETIME ONE Stop: 02/14/19 08:55 Last Admin: 02/14/19 08:01 Dose: 25 mls/hr Sodium Chloride (Normal Saline) 1,000 mls @ 999 mls/hr IV .Bolus ONE Stop: 02/14/19 11:21 Last Admin: 02/14/19 10:26 Dose: 999 mls/hr Potassium Chloride/Sodium Chloride (1/2 Ns With 20 Meq Kcl) 1,000 mls @ 75 mls/ hr IV ASDIRECTED [facility] Last Admin: 02/16/19 05:43 Dose: 75 mls/hr Dextrose/Water (Dextrose 5% In Water) 1,000 mls @ 100 mls/hr IV ASDIRECTED [facility] Last Admin: 02/16/19 08:20 Dose: 100 mls/hr Potassium Chloride 30 meq/ (Dextrose/Water) 1,015 mls @ 100 mls/hr IV ASDIRECTED [facility] Last Admin: 02/17/19 04:24 Dose: 100 mls/hr Dextrose/Water (Dextrose 5% In Water) 1,000 mls @ 100 mls/hr IV ASDIRECTED [facility] Last Admin: 02/19/19 03:15 Dose: 100 mls/hr Ondansetron HCl (Zofran) 4 mg IVPUSH ONETIME ONE Stop: 02/13/19 10:33 Last Admin: 02/13/19 11:06 Dose: 4 mg Potassium Chloride (Klor-Con M20) 40 meq PO ONETIME ONE Stop: 02/19/19 08:01 Last Admin: 02/19/19 08:31 Dose: 40 meq - Exam General: Reports: Alert, No Acute Distress. Denies: Oriented, Cooperative Lungs: Reports: Normal Respiratory Effort, Crackles, Rhonchi. Denies: Wheezing Cardiovascular: Reports: Regular Rate, Regular Rhythm GI/Abdominal Exam: Normal Bowel Sounds, Soft, Non-Tender, No Distention Skin: Reports: Warm, Dry, Other (heel boots intact.) Neurological: Reports: No New Focal Deficit Psy/Mental Status: Reports: Alert, Normal Affect <Kendrick Eldridge - Last Filed: 02/20/19 13:56> Discharge Summary - Hospital Course HPI Initial Comments: I have seen and examined to patient independently of Bridget Armendariz CNP. I have discussed the case for care of this patient with her. I have reviewed and approve of the plan of care as outlined by LEASING MANAGER. Please see orders. - Patient Data Vitals - Most Recent: Last Vital Signs Temp 36.0 C 02/20/19 08:00 Pulse 117 H 02/20/19 08:00 Resp 14 02/20/19 08:00 BP 147/94 H 02/20/19 08:00 Pulse Ox 94 L 02/20/19 08:00 I&O - Last 24 hours: Intake & Output 02/19/19 02/20/19 02/20/19 22:59 06:59 14:59 Intake Total 120 2620 0 Output Total 241 Balance 120 2620 -241 Lab Results - Last 24 hrs: Laboratory Results - last 24 hr 02/19/19 02/20/19 02/20/19 Range/Units 15:32 05:24 05:24 WBC 18.89 H (4.0-11.0) K/uL RBC 4.23 L (4.30-5.90) M/uL Hgb 13.2 (12.0-16.0) g/dL Hct 40.4 (36.0-46.0) % MCV 95.5 (80.0-98.0) fL MCH 31.2 (27.0-32.0) pg MCHC 32.7 (31.0-37.0) g/dL RDW Std Deviation 53.1 (28.0-62.0) fl RDW Coeff of Humera 15 (11.0-15.0) % Plt Count 426 H (150-400) K/uL MPV 11.60 (7.40-12.00) fL Add Manual Diff YES Neutrophils % (Manual) 59 (48.0-80.0) % Band Neutrophils % 17 % Lymphocytes % (Manual) 13 L (16.0-40.0) % Monocytes % (Manual) 10 (0.0-15.0) % Myelocytes % 1 % Nucleated RBC % 0.0 /100WBC Absolute Seg Neuts 11.1 H (1.4-5.7) Band Neutrophils # 3.2 Lymphocytes # (Manual) 2.5 H (0.6-2.4) Monocytes # (Manual) 1.9 H (0.0-0.8) Absolute Myelocytes 0.2 Nucleated RBCs # 0 K/uL Sodium 139 (136-145) mmol/L Potassium 3.5 (3.5-5.1) mmol/L Chloride 107 (98-107) mmol/L Carbon Dioxide 25.2 (21.0-32.0) mmol/L BUN 6 L (7.0-18.0) mg/dL Creatinine 0.6 (0.6-1.0) mg/dL Est Cr Clr Drug Dosing 92.08 mL/min Estimated GFR (MDRD) > 60.0 ml/min Glucose 160 H (74-106) mg/dL POC Glucose 164 H (60-110) mg/dL Calcium 7.6 L (8.5-10.1) mg/dL Med Orders - Current: Current Medications Sodium Chloride (Saline Flush) 10 ml FLUSH ASDIRECTED PRN PRN Reason: Keep Vein Open Last Admin: 02/13/19 11:06 Dose: 10 ml Sodium Chloride (Saline Flush) 2.5 ml FLUSH ASDIRECTED PRN PRN Reason: Keep Vein Open Last Admin: 02/13/19 11:06 Dose: 2.5 ml Discontinued Medications Citalopram Hydrobromide (Celexa) 40 mg PO DAILY [facility] Last Admin: 02/20/19 09:28 Dose: 40 mg Diazepam (Valium.) 5 mg PO Q8H PRN PRN Reason: Agitation Heparin Sodium (Porcine) (Heparin Sodium) 5,000 units SUBCUT Q8H [facility] Last Admin: 02/13/19 18:55 Dose: Not Given Heparin Sodium (Porcine) (Heparin Sodium) 5,000 units SUBCUT Q8H [facility] Last Admin: 02/20/19 06:51 Dose: 5,000 units Ceftriaxone Sodium/Dextrose 1 (gm/ Premix) 50 mls @ 100 mls/hr IV ONETIME ONE Stop: 02/13/19 12:10 Last Admin: 02/13/19 12:25 Dose: 100 mls/hr Sodium Chloride (Normal Saline) 1,000 mls @ 500 mls/hr IV STAT ONE Stop: 02/13/19 13:40 Last Admin: 02/13/19 12:25 Dose: 500 mls/hr Levofloxacin/Dextrose 750 mg/ (Premix) 150 mls @ 100 mls/hr IV ONETIME ONE Stop: 02/13/19 13:49 Last Admin: 02/13/19 13:14 Dose: 100 mls/hr Piperacillin Sod/Tazobactam (Sod 3.375 gm/ Sodium Chloride) 50 mls @ 100 mls/ hr IV ONETIME ONE Stop: 02/13/19 12:52 Last Admin: 02/13/19 14:52 Dose: 100 mls/hr Sodium Chloride (Normal Saline) 1,000 mls @ 999 mls/hr IV STAT ONE Stop: 02/13/19 13:35 Last Admin: 02/13/19 13:14 Dose: 999 mls/hr Piperacillin Sod/Tazobactam (Sod 3.375 gm/ Sodium Chloride) 50 mls @ 100 mls/ hr IV Q6H [facility] Sodium Chloride (Normal Saline) 1,000 mls @ 125 mls/hr IV ASDIRECTED [facility] Last Admin: 02/15/19 08:05 Dose: 125 mls/hr Piperacillin Sod/Tazobactam (Sod 3.375 gm/ Sodium Chloride) 50 mls @ 100 mls/ hr IV Q6H [facility] Last Admin: 02/16/19 09:47 Dose: 100 mls/hr Pantoprazole Sodium 40 mg/ (Sodium Chloride) 10 mls @ 200 mls/hr IV Q24H [facility] Last Admin: 02/19/19 15:16 Dose: 200 mls/hr Sodium Chloride (Normal Saline) 500 mls @ 999 mls/hr IV ONETIME ONE Stop: 02/13/19 19:09 Last Admin: 02/13/19 18:53 Dose: 999 mls/hr Lactated Ringer's (Ringers, Lactated) 500 mls @ 999 mls/hr IV ASDIRECTED [facility] Lactated Ringer's (Ringers, Lactated) 500 mls @ 999 mls/hr IV ONETIME ONE Stop: 02/14/19 01:38 Last Admin: 02/14/19 01:12 Dose: 999 mls/hr Potassium Chloride 20 meq/ (Premix) 50 mls @ 25 mls/hr IV ONETIME ONE Stop: 02/14/19 08:55 Last Admin: 02/14/19 08:01 Dose: 25 mls/hr Sodium Chloride (Normal Saline) 1,000 mls @ 999 mls/hr IV .Bolus ONE Stop: 02/14/19 11:21 Last Admin: 02/14/19 10:26 Dose: 999 mls/hr Potassium Chloride/Sodium Chloride (1/2 Ns With 20 Meq Kcl) 1,000 mls @ 75 mls/ hr IV ASDIRECTED [facility] Last Admin: 02/16/19 05:43 Dose: 75 mls/hr Dextrose/Water (Dextrose 5% In Water) 1,000 mls @ 100 mls/hr IV ASDIRECTED [facility] Last Admin: 02/16/19 08:20 Dose: 100 mls/hr Ceftriaxone Sodium/Dextrose 1 (gm/ Premix) 50 mls @ 100 mls/hr IV Q24H [facility] Last Admin: 02/19/19 15:20 Dose: 100 mls/hr Metronidazole 500 mg/ Premix 100 mls @ 100 mls/hr IV QID [facility] Last Admin: 02/20/19 06:53 Dose: 100 mls/hr Potassium Chloride 30 meq/ (Dextrose/Water) 1,015 mls @ 100 mls/hr IV ASDIRECTED [facility] Last Admin: 02/17/19 04:24 Dose: 100 mls/hr Dextrose/Water (Dextrose 5% In Water) 1,000 mls @ 100 mls/hr IV ASDIRECTED [facility] Last Admin: 02/19/19 03:15 Dose: 100 mls/hr Potassium Chloride/Sodium Chloride (1/2 Ns With 20 Meq Kcl) 1,000 mls @ 100 mls /hr IV ASDIRECTED [facility] Last Admin: 02/20/19 10:29 Dose: 100 mls/hr Ondansetron HCl (Zofran) 4 mg IVPUSH ONETIME ONE Stop: 02/13/19 10:33 Last Admin: 02/13/19 11:06 Dose: 4 mg Ondansetron HCl (Zofran) 4 mg IVPUSH Q4H PRN PRN Reason: Nausea Potassium Chloride (Klor-Con M20) 40 meq PO ONETIME ONE Stop: 02/19/19 08:01 Last Admin: 02/19/19 08:31 Dose: 40 meq Quetiapine Fumarate (Seroquel) 50 mg PO BID [facility] Last Admin: 02/20/19 09:28 Dose: 50 mg
== END 2019-02-20 12:30 | DRG 872 ==
LOC: MW.ED 10:52 → MW.ICU 12:43 → MW.MS 02-15 12:26
PROVIDERS: ADMIT Internal Medicine; ATTEND Internal Medicine
DX: A41.9 Sepsis, unspecified organism (principal); N39.0 Urinary tract infection, site not specified; E87.0 Hyperosmolality and hypernatremia; K56.600 Partial intestinal obstruction, unspecified as to cause; Z51.5 Encounter for palliative care; H54.7 Unspecified visual loss; F03.90 Unspecified dementia, unspecified severity, without behavioral disturbance, psychotic disturbance, mood disturbance, and anxiety; K81.9 Cholecystitis, unspecified; R29.810 Facial weakness; B96.1 Klebsiella pneumoniae [K. pneumoniae] as the cause of diseases classified elsewhere; Z87.891 Personal history of nicotine dependence; Z79.899 Other long term (current) drug therapy
CPT/HCPCS: 36415; 70450; 70450-26; 71045; 71045-26; 74176; 74176-26; 80048; 80053; 80069; 81001; 82962; 83605; 83735; 84484; 85025; 85610; 87040; 87086; 87088; 87186; 93005; 96365; 96367; 96375; 99285; 99285-25; A9270-GY; C9113; J0696; J1644; J1956; J2405; J2543; J3480; J3490; J7040; J7050; J7060; J7120